=== PATIENT | male | born 1945 | race Caucasian/White ===

== ENCOUNTER 2021-12-25 19:03 | Inpatient (IN) | payer MEDICARE, SELFPAY ==
--- NOTE | ~2021-12-25 | XR_ITS ---
EXAMINATION: XR CHEST CLINICAL INFORMATION: Weakness. COMPARISON: None TECHNIQUE: Frontal view of the chest was obtained. FINDINGS: Normal appearance of the cardiomediastinal silhouette. Mild bibasilar subsegmental atelectasis. No focal airspace opacity, pleural effusion or pneumothorax. No acute osseous abnormalities. XR/XR chest 1V IMPRESSION: Mild bibasilar subsegmental atelectasis. No focal airspace opacity. No pleural effusion or pneumothorax.
--- NOTE | ~2021-12-25 | CT_ITS ---
EXAMINATION: CT HEAD WITHOUT CONTRAST (STROKE PROTOCOL) CLINICAL INFORMATION: Stroke protocol. Left-sided facial drop. COMPARISON: None TECHNIQUE: Contiguous axial imaging was performed from the skull base to vertex without intravenous administration of contrast. This CT examination was performed using dose optimization techniques as appropriate, variously including the following: *Automated exposure control *Adjustment of mA and/or kV according to patient size (this includes techniques or standardized protocols for targeted exams where dose is matched to indication/reason for exam; i.e. extremities or head) *Use of iterative reconstruction technique DLP: 823 mGy-cm FINDINGS: Age indeterminate lacunar infarcts in the right basal ganglia (5:39). Focal hypodensity in the right centrum semiovale (5:28), favoring to represent microangiopathic white matter changes. There is no evidence of acute intracranial hemorrhage or edematous territorial infarction. A few foci of hypoattenuation in the periventricular and deep white matter are consistent with mild microangiopathy. Dumont-white matter differentiation is preserved. Proportional prominence of the ventricles and sulcal spaces. No evidence for obstructive hydrocephalus. No abnormal mass effect or midline shift. No extra-axial fluid collections. No acute soft tissue or osseous abnormalities. Mucus retention cyst in the right maxillary sinus. No air-fluid levels. The mastoids are clear. CT/CT head for stroke IMPRESSION: 1. Age indeterminate lacunar infarctions in the right basal ganglia. Recommend correlation with an MR of the brain. 2. Chronic microangiopathy and generalized cerebral volume loss. This critical result was discussed with Shanika Guillen NP at 12/25/2021 7:25 PM and it was ascertained that the content and urgency of the report was understood at the time of direct communication.
--- NOTE | ~2021-12-25 | CT_ITS ---
EXAMINATION: CTA NECK WITH CONTRAST (STROKE) CTA BRAIN WITH CONTRAST (STROKE) CLINICAL INFORMATION: Left-sided upper extremity and lower extremity weakness and facial droop. COMPARISON: CT scan of the head also obtained 12/25/2021. TECHNIQUE: CTA of the head and neck was performed in the axial plane from the mediastinum to the skull vertex using 70 mL Omnipaque 350 intravenous contrast. A postcontrast CT scan of the head was obtained. The degree of stenosis is based off NASCET criteria.. Additional reformatted multiplanar images including maximum intensity projection MIP images are generated on the CT workstation. This CT examination was performed using dose optimization techniques as appropriate, variously including the following: *Automated exposure control *Adjustment of mA and/or kV according to patient size (this includes techniques or standardized protocols for targeted exams where dose is matched to indication/reason for exam; i.e. extremities or head) *Use of iterative reconstruction technique DLP: 1598 mGy-cm FINDINGS: CT Head: There is no evidence of acute intracranial hemorrhage or territorial infarction. No abnormal mass-effect or midline shift is seen. [place] to white matter differentiation is well preserved. No extra-axial fluid collections are identified. There is no abnormal enhancement. The ventricles and sulci are commensurately prominent consistent with diffuse volume loss. There are areas of low attenuation in the periventricular and subcortical white matter, most consistent with chronic microvascular ischemic changes. There are likely chronic lacunar infarcts versus prominent perivascular spaces in the right basal ganglia. There are no acute osseous findings. There is hyperostosis frontalis interna. There are atherosclerotic calcifications of the cavernous internal carotid arteries bilaterally. The soft tissues are unremarkable. There have been bilateral lens extractions. The mastoid air cells are well-aerated. There is a retention cyst in the inferior left maxillary sinus. There may be a small polyp off the inferior left turbinate bone. CTA Neck: There are atheromatous calcifications of the aortic arch and at the origins of the great vessels of the neck. There is approximately 50% stenosis at the origin of the left subclavian artery. There are atheromatous calcifications at the origins of the left common carotid and brachiocephalic arteries, but the vessels are patent. There are atherosclerotic calcifications at the origin of the right subclavian artery, but the vessel is patent. The common carotid arteries are patent bilaterally with mild atheromatous plaque. There are atheromatous calcifications at the carotid bifurcations bilaterally with approximately 50% stenosis at the left carotid bifurcation and less than 50% stenosis on the right. The cervical internal carotid arteries are tortuous and extend almost to the midline bilaterally. There are mild atheromatous calcifications in the distal cervical internal carotid arteries bilaterally, but the vessels are patent. There are atheromatous calcifications at the origin of the left vertebral artery. There are mild calcifications of the V1 segment of the right vertebral artery. Both vertebral arteries are patent throughout their cervical course. The right vertebral artery is dominant. Nonvascular: There are emphysematous changes in the upper lung jorge bilaterally. The thyroid gland is normal in size. There is no cervical lymphadenopathy. There are multilevel spondylitic and facet changes in the cervical spine. CTA Head: There are atherosclerotic calcifications of the cavernous internal carotid arteries bilaterally. There are also calcifications of the paraclinoid and supraclinoid internal carotid arteries, but the vessels are patent. There is mild stenosis in the mid/distal M1 segment of the right middle cerebral artery, but flow distal to this is maintained and there is good arborization. There is mild ectasia in the distal M1 segment of the left middle cerebral artery without focal stenosis. The bilateral anterior cerebral arteries are patent. There is a 1.8 mm aneurysm of the inferior aspect of the anterior indicating artery to the left midline. In the posterior circulation, the right vertebral artery is dominant. There are calcifications of the bilateral intradural vertebral arteries which are patent. However, there is irregular caliber of the left vertebral artery which ends primarily in the PICA. There is also irregular caliber of the proximal right intradural vertebral artery with significant stenosis. Distal to this the basilar artery is patent but has markedly irregular caliber. There is severe stenosis at the P1/P2 segment of the right posterior cerebral artery. There is a origin of the left posterior cerebral artery. Both posterior cerebral artery P2 and P2 segments have slightly irregular caliber, but are patent. There is good opacification of the right transverse and sigmoid sinuses. The left transverse and sigmoid sinuses are small, but this is likely congenital as the left jugular foramen has a smaller caliber compared to the right. The other venous sinuses opacify normally. CT/CT angio head neck stroke IMPRESSION: CTA head and neck: 1. There are no acute bleeds or territorial infarcts. 2. There is diffuse volume loss and there are chronic microvascular ischemic changes. 3. There are no intracranial masses or areas of abnormal enhancement. 4. There is no cervical lymphadenopathy. There are spondylitic and facet arthropathic changes in the cervical spine. CTA head and neck: 1. There are atherosclerotic calcifications throughout the upper chest and cervical arterial structures without significant stenosis. 2. Intracranially there is irregular caliber of the right middle cerebral artery M1 segment, the bilateral vertebral arteries, the basilar artery and the right posterior cerebral artery. There are no focal stenoses or vascular malformations. 3. 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 4. 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 This critical result was discussed with Shanika Guillen by telephone on 12/25/2021 at 8:34 PM and it was ascertained that the content and urgency of the report was understood at the time of direct communication.
--- NOTE | ~2021-12-25 | MR_ITS ---
EXAMINATION: MR BRAIN WITHOUT CONTRAST CLINICAL INFORMATION: Left-sided facial droop COMPARISON: CTA head and neck 12/25/2021. TECHNIQUE: Multiplanar multisequence MR imaging of the brain was obtained without intravenous contrast. FINDINGS: Reduced diffusion involving the right gibson radiata, posterior lentiform nucleus and posterior limb of the internal capsule, compatible with acute infarct. There is no intracranial hemorrhage on iron-sensitive imaging. No extra-axial collection or mass effect/herniation. Scattered periventricular and deep white matter T2 FLAIR hyperintensities consistent with mild underlying microangiopathy. Chronic lacunar infarcts involving the right centrum semiovale and right lentiform nucleus. No hydrocephalus. Mild generalized cerebral volume loss with commensurate sulcal and ventricular prominence. The major flow voids at the skull base are preserved. The midline structures are normal. The cerebellar tonsils are normally positioned. The craniocervical junction is normal. Marrow signal is within normal limits. The visualized soft tissues are without significant abnormality. No signal abnormality within the paranasal sinuses or within the mastoid air cells. MR/MR head/brain wo con IMPRESSION: 1. Acute infarct involving the right gibson radiata, posterior lentiform nucleus, and posterior limb of the internal capsule. 2. Mild chronic microangiopathy and chronic lacunar infarcts involving the right centrum semiovale and right basal ganglia. -
--- NOTE | 2021-12-25 19:06 | ECG_ITS ---
Test Reason : STROKE Blood Pressure : / mmHG Vent. Rate : 095 BPM Atrial Rate : 095 BPM P-R Int : 148 ms QRS Dur : 092 ms QT Int : 346 ms P-R-T Axes : 056 -20 054 degrees QTc Int : 434 ms Normal sinus rhythm Low voltage QRS Nonspecific T wave abnormality Abnormal ECG No previous ECGs available Referred By: Shanika Guillen Electronically Signed By:KATHRYN GAYLE MD
--- NOTE | 2021-12-25 19:07 | ED_ITS ---
HPI - General Adult General Stated complaint: Stroke Alert <KIKI Meade - Last Filed: 12/25/21 22:10> Time Seen by Provider: 12/25/21 19:06 <KIKI Meade - Last Filed: 12/25/21 22:10> Source: patient <KIKI Meade - Last Filed: 12/25/21 22:10> Mode of arrival: ambulatory <KIKI Meade - Last Filed: 12/25/21 22:10> Limitations: no limitations <KIKI Meade - Last Filed: 12/25/21 22:10> History of Present Illness HPI narrative: 76 year old male medical history significant for hypertension, hyperlipidemia presenting to the emergency department weakness, patient tells me approximately 17:30 he started experiencing left-sided body weakness. He also noted that he has a facial droop and his speech sounds different.. He tells me it feels like his left side is much weaker than his right however is complaining of overall weakness. Patient tells that this is never happened to him in the past. Arrival patient denies chest pain, shortness of breath, nausea, vomiting, headache, vision changes, dizziness abdominal pain. Patient not on blood thinners, no history of stroke, PE or DVT. NIH stroke scale 5. Patient was brought in by EMS in at 18 gauge IV was placed in the left AC. Patient alert oriented x4 on arrival. <KIKI Meade - Last Filed: 12/25/21 22:10> Related Data Home medications: Home Medications Medication Instructions Recorded Confirmed amlodipine 5 mg tablet 1 tab PO DAILY 12/25/21 12/25/21 donepezil 10 mg tablet 1 tab PO BEDTIME 12/25/21 12/25/21 losartan 100 mg tablet 1 tab PO DAILY 12/25/21 12/25/21 melatonin 3 mg tablet 1 tab PO BEDTIME PRN insomnia 12/25/21 12/25/21 mirtazapine 15 mg tablet 1 tab PO BEDTIME 12/25/21 12/25/21 <KIKI Meade - Last Filed: 12/25/21 22:10> Allergies/adverse reactions: Allergies Allergy/AdvReac Type Severity Reaction Status Date / Time No Known Allergies Allergy Unverified 10/26/19 18:03 <KIKI Meade - Last Filed: 12/25/21 22:10> Review of Systems Review of Systems: Constitutional : No Weight loss, No Fever, No Chills, No Fatigue, No Malaise ENT/Mouth : No sore throat, No Rhinorrhea Eyes: No Eye Pain, No Swelling, No Redness Cardiovascular : No Chest Pain, No SOB, No Dyspnea on Exertion, No Orthopnea, No Edema, No Palpitations Respiratory : No Cough, No Sputum, No Wheezing Gastrointestinal : No Nausea, No Vomiting, No Diarrhea, No Constipation, No abdominal Pain, No Hematochezia, No Melena Genitourinary : No Dysuria, No Urinary Frequency, No Hematuria, Musculoskeletal : No joint pain, No Myalgias, No Joint Swelling Skin : No Skin Lesions, No rash Neuro : + Weakness, No Numbness, No Dizziness, No Headache, + slurred speech Psych : No Anxiety/Panic, No Depression All other systems reviewed and are negative <KIKI Meade - Last Filed: 12/25/21 22:10> Yes all other systems are reviewed and are negative <KIKI Meade - Last Filed: 12/25/21 22:10> [facility] Past Medical History Attestation statement: The following information was validated with the patient. <KIKI Meade - Last Filed: 12/25/21 22:10> Source: old records reviewed and nursing notes reviewed <KIKI Meade - Last Filed: 12/25/21 22:10> Social History Social History: Social History Advance Directives: No Advance Directives Information Provided: Yes <KIKI Meade - Last Filed: 12/25/21 22:10> Physical Exam ED Vital Signs: Vital Signs - 24 hr 12/25/21 20:45 12/25/21 20:15 12/25/21 20:30 Pulse Rate 92 90 92 Respiratory Rate 20 20 18 Blood Pressure 173/89 H 190/104 H 173/89 H Pulse Oximetry 96 96 Oxygen Delivery Method Room Air Room Air 12/25/21 20:45 Pulse Rate 90 Respiratory Rate 18 Blood Pressure 177/80 H Pulse Oximetry 96 Oxygen Delivery Method Room Air BMI result Body Mass Index 29.0 vss <KIKI Meade - Last Filed: 12/25/21 22:10> Vital Signs - 24 hr 12/25/21 20:45 12/25/21 20:15 12/25/21 20:30 Pulse Rate 92 90 92 Respiratory Rate 20 20 18 Blood Pressure 173/89 H 190/104 H 173/89 H Pulse Oximetry 96 96 Oxygen Delivery Method Room Air Room Air 12/25/21 20:45 Pulse Rate 90 Respiratory Rate 18 Blood Pressure 177/80 H Pulse Oximetry 96 Oxygen Delivery Method Room Air BMI result Body Mass Index 29.0 <Danial Edwards MD - Last Filed: 12/25/21 22:48> Appearance: Alert.? Oriented X3.? No acute distress.? Head: Normocephalic, atraumatic, no step-offs or deformities. Left-sided facial droop and slurred speech noted. Eyes: Pupils equal, round and reactive to light.? ENT: Pharynx normal.? Neck: Normal inspection.? Neck supple.? CVS: Normal heart rate and rhythm.? Pulses normal.? Respiratory: No respiratory distress.? Breath sounds normal.? Abdomen: Soft and nontender.? Skin: Skin warm and dry.? Normal skin color.? Normal skin turgor.? Extremities: No lower extremity edema.? No calf ttp. Patient noted to have left upper and left lower extremity weakness and drift. Neuro: Oriented X 3.? No motor deficit.? No sensory deficit. CN 2-12 intact. + Romberg test with left-sided drift. Decreased hand electric distribution checker on the left when compared to the right. <KIKI Meade - Last Filed: 12/25/21 22:10> Course Reevaluation(s) Reevaluation #1: Patient's INR 1.1, point of care 103 on point of care testing. Patient's head CT with age indeterminate lacunar infarctions in the right basal ganglia, chronic microangiopathy and generalized cerebral volume loss present. Spoke to Neurology Dr. Ness based off history and physical exam obtained by this [place] TPA will be ordered. I did have my attending evaluate patient who agrees with this plan. No contraindications to tPA administration. <KIKI Meade - Last Filed: 12/25/21 22:10> Time: 19:42 <KIKI Meade - Last Filed: 12/25/21 22:10> Reevaluation #2: I went back to speak to patient about tPA he tells me he thinks he may have fallen 3 times. Based off patients medications list he may have it diagnosis of dementia. He is now reporting to myself and Dr. Edwards that he thinks he fell 3 times today, and other contraindication to tPA. Patient is now saying symptoms started earlier this morning however facial droop started at around 05:30, patient poor historian. Will reach back out to Neurology. <KIKI Meade - Last Filed: 12/25/21 22:10> Time: 19:45 <KIKI Meade - Last Filed: 12/25/21 22:10> Reevaluation #3: After speaking to Neurology again patient will not receive tPA. Due to patient being poor historian, unclear last known well time, history of fall with potential head strike. <KIKI Meade - Last Filed: 12/25/21 22:10> Time: 19:48 <KIKI Meade - Last Filed: 12/25/21 22:10> Additional Reevaluation(s): 1958 CBC with normocytic anemia, no leukocytosis. Chemistry with acute kidney injury, will hydrate as patient did just receive a CTA. Coags with no acute findings. Chest x-ray unremarkable. 2154 Spoke to [facility] Interventional Neurology, nothing to be done about small aneurysm. Will reach out to our neurologist here to ensure that there comfortable keeping this patient in our hospital. [address] Austin who feels comfortable with patient staying in the hospital. Recommends 81 mg of aspirin. At this time patient will be admitted to the hospitalist team for further intervention and treatment. <KIKI Meade - Last Filed: 12/25/21 22:10> Medications Administered Discontinued Medications Generic Name Dose Route Start Last Admin Trade Name Freq PRN Reason Stop Dose Admin Amlodipine Besylate 5 mg 12/25/21 21:14 12/25/21 22:04 Amlodipine Besylate 5 Mg Tablet PO 12/25/21 21:15 Not Given ONCE ONE Protocol Aspirin 81 mg 12/25/21 22:03 12/25/21 22:43 Aspirin Enteric Coated 81 Mg Tablet. PO 12/25/21 22:04 81 mg ONCE ONE Administration Sodium Chloride 1,000 mls @ 999 mls/hr 12/25/21 20:15 12/25/21 21:30 Ns IV 12/25/21 21:15 Infused .Q1H1M SERGEI Infusion Iohexol 100 ml 12/25/21 19:18 12/25/21 19:18 Iohexol 350 Mg/Ml 100 Ml Infus..Btl IV 12/25/21 19:19 70 ml ONCE ONE Administration <KIKI Meade - Last Filed: 12/25/21 22:10> Medications Administered Discontinued Medications Generic Name Dose Route Start Last Admin Trade Name Freq PRN Reason Stop Dose Admin Amlodipine Besylate 5 mg 12/25/21 21:14 12/25/21 22:04 Amlodipine Besylate 5 Mg Tablet PO 12/25/21 21:15 Not Given ONCE ONE Protocol Aspirin 81 mg 12/25/21 22:03 12/25/21 22:43 Aspirin Enteric Coated 81 Mg Tablet. PO 12/25/21 22:04 81 mg ONCE ONE Administration Sodium Chloride 1,000 mls @ 999 mls/hr 12/25/21 20:15 12/25/21 21:30 Ns IV 12/25/21 21:15 Infused .Q1H1M SERGEI Infusion Iohexol 100 ml 12/25/21 19:18 12/25/21 19:18 Iohexol 350 Mg/Ml 100 Ml Infus..Btl IV 12/25/21 19:19 70 ml ONCE ONE Administration <Danial Edwards MD - Last Filed: 12/25/21 22:48> Medical Decision Making [facility] Narrative Medical decision making narrative: 1907 76-year-old male presents with left-sided upper and lower extremity weakness as well as left-sided facial droop symptoms started at 05:30. Patient not on anticoagulants. Patient denies trauma. No history of this in the past. Upon arrival NIH stroke scale 5. On exam there is left upper and lower extremity weakness with drift. No ataxia. Patient noted to have left-sided facial droop with slurred speech. Extraocular movements intact. Patient alert and oriented x4 following commands. Mentating well. Plan at this time to initiate stroke protocol obtain dry head CT, CTA head and neck for stroke. Will obtain PT INR, basic labs, EKG. Will reach out to neurology for input <KIKI Meade - Last Filed: 12/25/21 22:10> Medical Records Medical records reviewed: Yes I reviewed the patient's medical records. <KIKI Meade - Last Filed: 12/25/21 22:10> Lab Data Lab results reviewed: Yes I reviewed the patient's lab results. <KIKI Meade - Last F iled: 12/25/21 22:10> Result diagrams: : 12/25/21 19:40 12/25/21 19:40 <KIKI Meade - Last Filed: 12/25/21 22:10> Labs: Lab Results 12/25/21 12/25/21 12/25/21 Range/Units 19:07 19:07 19:40 WBC 8.0 (4.8-10.8) X10*3/uL RBC 4.33 L (4.60-5.80) X10*6/uL Hgb 12.9 L (14.0-18.0) g/dl Hct 37.4 L (42.0-52.0) % MCV 86.4 (80.0-98.0) fL MCH 29.8 (27.0-33.0) pg MCHC 34.5 (31.0-36.0) g/dl RDW 12.8 (11.0-16.0) % Plt Count 263 (160-400) X10*3/uL MPV 9.1 L (9.4-12.4) fL Immature Gran % (Auto) 0.1 (0.0-0.4) % Neut % (Auto) 62.9 (45-73) % Lymph % (Auto) 21.8 (20-40) % [place] % (Auto) 11.0 (2-11) % Eos % (Auto) 3.3 (0-4) % Baso % (Auto) 0.9 (0-2) % Lymph # (Auto) 1.7 (1.2-4.9) X10*3/uL [place] # (Auto) 0.9 (0.1-1.2) X10*3/uL Eos # (Auto) 0.3 (0.0-0.4) X10*3/uL Baso # (Auto) 0.1 (0.0-0.2) X10*3/uL Abs Immat Gran (auto) 0.01 (0.00-0.03) X10*3/uL Absolute Neuts (auto) 5.0 (2.0-8.3) x10*3/uL Absolute Nucleated RBC 0.000 (0.0-0.012) X10*3/uL Nucleated RBC % (auto) 0.0 (0.0-0.2) /100WBC PT (10.0-13.1) SEC Whole Blood PT 13.1 (11.1-13.5) sec INR (0.9-1.1) Whole Blood INR 1.1 (0.9-1.1) Sodium (135-145) mmol/L Potassium (3.3-5.1) mmol/L Chloride (96-108) mmol/L Carbon Dioxide (22-29) mmol/L Anion Gap (12-20) BUN (9-16) mg/dL Creatinine (0.5-1.4) mg/dL Estim Creat Clear Calc Estimated GFR POC Glucose 103 (60-115) mg/dL Random Glucose (60-115) mg/dL Calcium (8.4-10.2) mg/dL Troponin I High Sens (<3.5-35.0) ng/L B-Natriuretic Peptide (<100) pg/mL Hold Red Top COVID-19 (JONO) (Negative) COVID-19 Clin Com 12/25/21 12/25/21 12/25/21 Range/Units 19:40 19:40 19:40 WBC (4.8-10.8) X10*3/uL RBC (4.60-5.80) X10*6/uL Hgb (14.0-18.0) g/dl Hct (42.0-52.0) % MCV (80.0-98.0) fL MCH (27.0-33.0) pg MCHC (31.0-36.0) g/dl RDW (11.0-16.0) % Plt Count (160-400) X10*3/uL MPV (9.4-12.4) fL Immature Gran % (Auto) (0.0-0.4) % Neut % (Auto) (45-73) % Lymph % (Auto) (20-40) % [place] % (Auto) (2-11) % Eos % (Auto) (0-4) % Baso % (Auto) (0-2) % Lymph # (Auto) (1.2-4.9) X10*3/uL [place] # (Auto) (0.1-1.2) X10*3/uL Eos # (Auto) (0.0-0.4) X10*3/uL Baso # (Auto) (0.0-0.2) X10*3/uL Abs Immat Gran (auto) (0.00-0.03) X10*3/uL Absolute Neuts (auto) (2.0-8.3) x10*3/uL Absolute Nucleated RBC (0.0-0.012) X10*3/uL Nucleated RBC % (auto) (0.0-0.2) /100WBC PT 11.9 (10.0-13.1) SEC Whole Blood PT (11.1-13.5) sec INR 1.0 (0.9-1.1) Whole Blood INR (0.9-1.1) Sodium 140 (135-145) mmol/L Potassium 3.8 (3.3-5.1) mmol/L Chloride 107 (96-108) mmol/L Carbon Dioxide 23 (22-29) mmol/L Anion Gap 14 (12-20) BUN 21 H (9-16) mg/dL Creatinine 1.73 H (0.5-1.4) mg/dL Estim Creat Clear Calc 34.7 Estimated GFR 38 POC Glucose (60-115) mg/dL Random Glucose 101 (60-115) mg/dL Calcium 8.7 (8.4-10.2) mg/dL Troponin I High Sens 48.8 H (<3.5-35.0) ng/L B-Natriuretic Peptide (<100) pg/mL Hold Red Top COVID-19 (JONO) (Negative) COVID-19 Clin Com 12/25/21 12/25/21 12/25/21 Range/Units 19:40 19:40 21:50 WBC (4.8-10.8) X10*3/uL RBC (4.60-5.80) X10*6/uL Hgb (14.0-18.0) g/dl Hct (42.0-52.0) % MCV (80.0-98.0) fL MCH (27.0-33.0) pg MCHC (31.0-36.0) g/dl RDW (11.0-16.0) % Plt Count (160-400) X10*3/uL MPV (9.4-12.4) fL Immature Gran % (Auto) (0.0-0.4) % Neut % (Auto) (45-73) % Lymph % (Auto) (20-40) % [place] % (Auto) (2-11) % Eos % (Auto) (0-4) % Baso % (Auto) (0-2) % Lymph # (Auto) (1.2-4.9) X10*3/uL [place] # (Auto) (0.1-1.2) X10*3/uL Eos # (Auto) (0.0-0.4) X10*3/uL Baso # (Auto) (0.0-0.2) X10*3/uL Abs Immat Gran (auto) (0.00-0.03) X10*3/uL Absolute Neuts (auto) (2.0-8.3) x10*3/uL Absolute Nucleated RBC (0.0-0.012) X10*3/uL Nucleated RBC % (auto) (0.0-0.2) /100WBC PT (10.0-13.1) SEC Whole Blood PT (11.1-13.5) sec INR (0.9-1.1) Whole Blood INR (0.9-1.1) Sodium (135-145) mmol/L Potassium (3.3-5.1) mmol/L Chloride (96-108) mmol/L Carbon Dioxide (22-29) mmol/L Anion Gap (12-20) BUN (9-16) mg/dL Creatinine (0.5-1.4) mg/dL Estim Creat Clear Calc Estimated GFR POC Glucose (60-115) mg/dL Random Glucose (60-115) mg/dL Calcium (8.4-10.2) mg/dL Troponin I High Sens (<3.5-35.0) ng/L B-Natriuretic Peptide 21 (<100) pg/mL Hold Red Top See Note COVID-19 (JONO) Negative (Negative) COVID-19 Clin Com See Note <KIKI Meade - Last Filed: 12/25/21 22:10> Lab Results 12/25/21 12/25/21 12/25/21 Range/Units 19:07 19:07 19:40 WBC 8.0 (4.8-10.8) X10*3/uL RBC 4.33 L (4.60-5.80) X10*6/uL Hgb 12.9 L (14.0-18.0) g/dl Hct 37.4 L (42.0-52.0) % MCV 86.4 (80.0-98.0) fL MCH 29.8 (27.0-33.0) pg MCHC 34.5 (31.0-36.0) g/dl RDW 12.8 (11.0-16.0) % Plt Count 263 (160-400) X10*3/uL MPV 9.1 L (9.4-12.4) fL Immature Gran % (Auto) 0.1 (0.0-0.4) % Neut % (Auto) 62.9 (45-73) % Lymph % (Auto) 21.8 (20-40) % [place] % (Auto) 11.0 (2-11) % Eos % (Auto) 3.3 (0-4) % Baso % (Auto) 0.9 (0-2) % Lymph # (Auto) 1.7 (1.2-4.9) X10*3/uL [place] # (Auto) 0.9 (0.1-1.2) X10*3/uL Eos # (Auto) 0.3 (0.0-0.4) X10*3/uL Baso # (Auto) 0.1 (0.0-0.2) X10*3/uL Abs Immat Gran (auto) 0.01 (0.00-0.03) X10*3/uL Absolute Neuts (auto) 5.0 (2.0-8.3) x10*3/uL Absolute Nucleated RBC 0.000 (0.0-0.012) X10*3/uL Nucleated RBC % (auto) 0.0 (0.0-0.2) /100WBC PT (10.0-13.1) SEC Whole Blood PT 13.1 (11.1-13.5) sec INR (0.9-1.1) Whole Blood INR 1.1 (0.9-1.1) Sodium (135-145) mmol/L Potassium (3.3-5.1) mmol/L Chloride (96-108) mmol/L Carbon Dioxide (22-29) mmol/L Anion Gap (12-20) BUN (9-16) mg/dL Creatinine (0.5-1.4) mg/dL Estim Creat Clear Calc Estimated GFR POC Glucose 103 (60-115) mg/dL Random Glucose (60-115) mg/dL Calcium (8.4-10.2) mg/dL Troponin I High Sens (<3.5-35.0) ng/L B-Natriuretic Peptide (<100) pg/mL Hold Red Top COVID-19 (JONO) (Negative) COVID-19 Clin Com 12/25/21 12/25/21 12/25/21 Range/Units 19:40 19:40 19:40 WBC (4.8-10.8) X10*3/uL RBC (4.60-5.80) X10*6/uL Hgb (14.0-18.0) g/dl Hct (42.0-52.0) % MCV (80.0-98.0) fL MCH (27.0-33.0) pg MCHC (31.0-36.0) g/dl RDW (11.0-16.0) % Plt Count (160-400) X10*3/uL MPV (9.4-12.4) fL Immature Gran % (Auto) (0.0-0.4) % Neut % (Auto) (45-73) % Lymph % (Auto) (20-40) % [place] % (Auto) (2-11) % Eos % (Auto) (0-4) % Baso % (Auto) (0-2) % Lymph # (Auto) (1.2-4.9) X10*3/uL [place] # (Auto) (0.1-1.2) X10*3/uL Eos # (Auto) (0.0-0.4) X10*3/uL Baso # (Auto) (0.0-0.2) X10*3/uL Abs Immat Gran (auto) (0.00-0.03) X10*3/uL Absolute Neuts (auto) (2.0-8.3) x10*3/uL Absolute Nucleated RBC (0.0-0.012) X10*3/uL Nucleated RBC % (auto) (0.0-0.2) /100WBC PT 11.9 (10.0-13.1) SEC Whole Blood PT (11.1-13.5) sec INR 1.0 (0.9-1.1) Whole Blood INR (0.9-1.1) Sodium 140 (135-145) mmol/L Potassium 3.8 (3.3-5.1) mmol/L Chloride 107 (96-108) mmol/L Carbon Dioxide 23 (22-29) mmol/L Anion Gap 14 (12-20) BUN 21 H (9-16) mg/dL Creatinine 1.73 H (0.5-1.4) mg/dL Estim Creat Clear Calc 34.7 Estimated GFR 38 POC Glucose (60-115) mg/dL Random Glucose 101 (60-115) mg/dL Calcium 8.7 (8.4-10.2) mg/dL Troponin I High Sens 48.8 H (<3.5-35.0) ng/L B-Natriuretic Peptide (<100) pg/mL Hold Red Top COVID-19 (JONO) (Negative) COVID-19 Clin Com 12/25/21 12/25/21 12/25/21 Range/Units 19:40 19:40 21:50 WBC (4.8-10.8) X10*3/uL RBC (4.60-5.80) X10*6/uL Hgb (14.0-18.0) g/dl Hct (42.0-52.0) % MCV (80.0-98.0) fL MCH (27.0-33.0) pg MCHC (31.0-36.0) g/dl RDW (11.0-16.0) % Plt Count (160-400) X10*3/uL MPV (9.4-12.4) fL Immature Gran % (Auto) (0.0-0.4) % Neut % (Auto) (45-73) % Lymph % (Auto) (20-40) % [place] % (Auto) (2-11) % Eos % (Auto) (0-4) % Baso % (Auto) (0-2) % Lymph # (Auto) (1.2-4.9) X10*3/uL [place] # (Auto) (0.1-1.2) X10*3/uL Eos # (Auto) (0.0-0.4) X10*3/uL Baso # (Auto) (0.0-0.2) X10*3/uL Abs Immat Gran (auto) (0.00-0.03) X10*3/uL Absolute Neuts (auto) (2.0-8.3) x10*3/uL Absolute Nucleated RBC (0.0-0.012) X10*3/uL Nucleated RBC % (auto) (0.0-0.2) /100WBC PT (10.0-13.1) SEC Whole Blood PT (11.1-13.5) sec INR (0.9-1.1) Whole Blood INR (0.9-1.1) Sodium (135-145) mmol/L Potassium (3.3-5.1) mmol/L Chloride (96-108) mmol/L Carbon Dioxide (22-29) mmol/L Anion Gap (12-20) BUN (9-16) mg/dL Creatinine (0.5-1.4) mg/dL Estim Creat Clear Calc Estimated GFR POC Glucose (60-115) mg/dL Random Glucose (60-115) mg/dL Calcium (8.4-10.2) mg/dL Troponin I High Sens (<3.5-35.0) ng/L B-Natriuretic Peptide 21 (<100) pg/mL Hold Red Top See Note COVID-19 (JONO) Negative (Negative) COVID-19 Clin Com See Note <Danial Edwards MD - Last Filed: 12/25/21 22:48> Attending Attestation The patient was seen and evaluated along with the physician assistant store director. Patient is demonstrating signs and symptoms of an acute CVA. Agree with the plan of CT/CTA, neurology consult. TPA was considered, although with patient's history of dementia and with the non clarity of time of onset, it was not recommended by Neurology. Coincidental finding of a small aneurysm on CTA. Discussion was undertaken with Neurosurgery from [facility]. The patient will be admitted for further evaluation. <Danial Edwards MD - Last Filed: 12/25/21 22:48> Critical Care Time Critical Care Time Critical Care Time: Yes <KIKI Meade - Last Filed: 12/25/21 22:10> Total Critical Care Time: 60 <KIKI Meade - Last Filed: 12/25/21 22:10> Attestation: I attest to this time spent taking care of the patient, obtaining history, physical, reviewing labs, imaging, speaking to my attending, speaking to specialist. <KIKI Meade - Last Filed: 12/25/21 22:10> Discharge Plan Discharge Clinical Impression: Lacunar infarction, Facial droop, Acute left-sided muscle weakness <KIKI Meade - Last Filed: 12/25/21 22:10> Patient Disposition: Admitted As Inpatient <KIKI Meade - Last Filed: 12/25/21 22:10>
[2021-12-25 19:08] VITALS: BP 170/90; PULSE 120; O2SAT 98
[2021-12-25 19:12] LABS: Glucose, Whole Blood 103 mg/dL (60-115)
[2021-12-25 19:14] LABS: Prothrombin Time Whole Bld POC 13.1 sec (11.1-13.5); ~PT, ~INR - Anti Coag Clinic 1.1 (0.9-1.1)
[2021-12-25] MEDS: iohexoL 350 MG/ML 100 ML INFUS..BTL IV (19:18)
[2021-12-25 19:20] VITALS: BP 190/104; PULSE 80; RESP 20; TEMP 36.4; O2SAT 96; BMI 29.0
[2021-12-25 19:42] VITALS: BMI 29.0; BMI 29.1
[2021-12-25 19:46] LABS: MANUAL DIFF FLAG NO
[2021-12-25 19:47] LABS: Basophils Absolute Auto 0.1 X10*3/uL (0.0-0.2); Basophils Percent Auto 0.9 % (0-2); Eosinophils Absolute Auto 0.3 X10*3/uL (0.0-0.4); Eosinophils Percent Auto 3.3 % (0-4); Hematocrit 37.4 % (42.0-52.0); Hemoglobin 12.9 g/dl (14.0-18.0); Imm Gran Abs Auto 0.01 X10*3/uL (0.00-0.03); Imm Gran Pct Auto 0.1 % (0.0-0.4); Lymphocytes Absolute Auto 1.7 X10*3/uL (1.2-4.9); Lymphocytes Percent Auto 21.8 % (20-40); Mean Corpuscular HGB Conc 34.5 g/dl (31.0-36.0); Mean Corpuscular Hemoglobin 29.8 pg (27.0-33.0); Mean Corpuscular Volume 86.4 fL (80.0-98.0); Mean Platelet Volume 9.1 fL (9.4-12.4); Monocytes Absolute Auto 0.9 X10*3/uL (0.1-1.2); Neutrophils Percent Auto 62.9 % (45-73); Platelet Count 263 X10*3/uL (160-400); Red Blood Count 4.33 X10*6/uL (4.60-5.80); Red Cell Distribution Width 12.8 % (11.0-16.0)
[2021-12-25 19:52] LABS: Prothrombin Time 11.9 SEC (10.0-13.1)
[2021-12-25 20:00] LABS: Anion Gap 14 (12-20); Blood Urea Nitrogen 21 mg/dL (9-16); Calcium 8.7 mg/dL (8.4-10.2); Carbon Dioxide 23 mmol/L (22-29); Chloride 107 mmol/L (96-108); Creatinine Clr Calc Pharmacy 34.7; Estimated Glomerular Filt Rate 38; Glucose Random 101 mg/dL (60-115); Potassium 3.8 mmol/L (3.3-5.1); Sodium 140 mmol/L (135-145)
[2021-12-25 20:08] LABS: Troponin-I High Sensitivity 48.8 ng/L (<3.5-35.0)
[2021-12-25] MEDS: 0.9 % Sodium Chloride 1,000 ML 999 ML IV (20:11)
[2021-12-25 20:15] VITALS: BP 190/104; PULSE 90; RESP 20; O2SAT 96
[2021-12-25 20:19] LABS: Stroke Lab Use COMPLETE
[2021-12-25 20:30] VITALS: BP 173/89; PULSE 92; RESP 18; O2SAT 96
[2021-12-25 20:42] LABS: B Type Natriuretic Peptide 21 pg/mL (<100)
[2021-12-25 20:45] VITALS: BP 173/89; BP 177/80; PULSE 90; PULSE 92; RESP 18; RESP 20; O2SAT 96
--- NOTE | 2021-12-25 21:21 | PHA.MEDREC ---
Pharmacy Consult ? Medication Reconciliation Pharmacy has completed the medication reconciliation.
[2021-12-25 22:08] LABS: COVID-19 Test Negative (Negative)
[2021-12-25] MEDS: Aspirin Enteric Coated 81 MG TABLET.DR PO (22:43)
--- NOTE | 2021-12-25 23:03 | PM.IMHP ---
History of Present Illness Date of Service: 12/25/21 Chief Complaint: Speech deficit This is a 76-year-old male with pertinent history of essential hypertension, insomnia who presents to the emergency department for evaluation of left-sided weakness, facial droop and speech deficit. Initially patient stated that he 1st noticed his deficits at 17:30. He was considered for tPA but later stated that his symptoms started earlier this morning. Neurology was contacted and he was deemed to be not a candidate for tPA. Upon my evaluation, patient states around 06:00 he noticed facial droop, change in his speech. He also had a fall due to weakness in lower extremities. Patient states he has noticed that his left upper and lower extremity have been weak since morning. No dizziness, lightheadedness or loss of consciousness prior to the fall. No similar symptoms in the past. Patient denies fever, chills, jerking movement of extremities, tongue bite, urinary bowel incontinence, chest discomfort, palpitations, shortness of breath, abdominal pain, changes in urinary or bowel habits Review of Systems Constitutional: Constitutional: Reports no additional constitutional complaints and Reports weakness Cardiovascular: Cardiovascular: Reports no additional cardiovascular complaints Respiratory: Respiratory: Reports no additional respiratory complaints Gastrointestinal: Gastrointestinal: Reports no additional gastrointestinal complaints Genitourinary: Genitourinary: Reports no additional male genitourinary complaints Neurologic: Reports Abnormal speech present and Reports weakness [facility] Medical History (Updated 12/25/21 @ 23:09 by Lizzy Mcfadden MD) Hypertension Insomnia Social History Advance Directives: No Advance Directives Information Provided: Yes Meds Allergies Allergy/AdvReac Type Severity Reaction Status Date / Time No Known Allergies Allergy Unverified 10/26/19 18:03 Active Medications: Current Medications Acetaminophen (Acetaminophen 325 Mg Tablet) 650 mg PO Q6H PRN PRN Reason: Pain, Mild (Pain Scale 1-3) Enoxaparin Sodium (Enoxaparin Sodium 40 Mg/0.4 Ml Syringe) 40 mg SUBCUT Q24H SERGEI Melatonin (Melatonin 3 Mg Tablet) 6 mg PO BEDTIME PRN PRN Reason: Insomnia Ondansetron HCl (Ondansetron Hcl 4 Mg/2 Ml Vial) 4 mg IVPUSH Q8H PRN PRN Reason: Nausea and Vomiting Pharmacy Consult (Consult Rx Perform Med Rec) 1 each MISCELLANE ONCE PRN PRN Reason: Consult order Sodium Chloride (0.9 % Sodium Chloride Flush 3 Ml Syringe) [facility]ations Medication Instructions Recorded Confirmed Last Taken Type amlodipine 5 mg tablet 1 tab PO DAILY 12/25/21 12/25/21 12/25/21 History donepezil 10 mg tablet 1 tab PO BEDTIME 12/25/21 12/25/21 12/24/21 History losartan 100 mg tablet 1 tab PO DAILY 12/25/21 12/25/21 12/25/21 History melatonin 3 mg tablet 1 tab PO BEDTIME PRN insomnia 12/25/21 12/25/21 Unknown History mirtazapine 15 mg tablet 1 tab PO BEDTIME 12/25/21 12/25/21 12/24/21 History Physical Exam Vital Signs and Narrative: Vital Signs: Last Vital Signs Pulse 90 12/25/21 20:45 Resp 18 12/25/21 20:45 BP 177/80 H 12/25/21 20:45 Pulse Ox 96 12/25/21 20:45 O2 Del Method 12/25/21 20:45 BMI result Body Mass Index 29.0 Middle-aged male lying in bed in no distress Neck supple, no JVD Regular rate and rhythm, S1-S2 heard Regular breath sounds bilaterally, no wheezing or crackles appreciated Abdomen soft nontender, no guarding, no rigidity Patient is awake, alert and oriented to self, place, time and person ; facial droop noted, left upper and lower extremity with strength 3/5, right lower and upper extremity strength 5/5 Psych: Normal mood No pedal edema Neuro: Speech: Abnormal speech present Results Labs CBC and Chem 7: 12/25/21 19:40 12/25/21 19:40 Labs: Laboratory Results - last 24 hr 12/25/21 12/25/21 12/25/21 19:07 19:07 19:40 MCV 86.4 MCH 29.8 MCHC 34.5 RDW 12.8 Plt Count 263 MPV 9.1 L Immature Gran % (Auto) 0.1 Neut % (Auto) 62.9 Lymph % (Auto) 21.8 [place] % (Auto) 11.0 Eos % (Auto) 3.3 Baso % (Auto) 0.9 Lymph # (Auto) 1.7 [place] # (Auto) 0.9 Eos # (Auto) 0.3 Baso # (Auto) 0.1 Abs Immat Gran (auto) 0.01 Absolute Neuts (auto) 5.0 Absolute Nucleated RBC 0.000 Nucleated RBC % (auto) 0.0 PT Whole Blood PT 13.1 INR Whole Blood INR 1.1 Anion Gap Estim Creat Clear Calc Estimated GFR POC Glucose 103 Random Glucose Calcium Troponin I High Sens B-Natriuretic Peptide Hold Red Top COVID-19 (JONO) COVID-19 Clin Com 12/25/21 12/25/21 12/25/21 19:40 19:40 19:40 MCV MCH MCHC RDW Plt Count MPV Immature Gran % (Auto) Neut % (Auto) Lymph % (Auto) [place] % (Auto) Eos % (Auto) Baso % (Auto) Lymph # (Auto) [place] # (Auto) Eos # (Auto) Baso # (Auto) Abs Immat Gran (auto) Absolute Neuts (auto) Absolute Nucleated RBC Nucleated RBC % (auto) PT 11.9 Whole Blood PT INR 1.0 Whole Blood INR Anion Gap 14 Estim Creat Clear Calc 34.7 Estimated GFR 38 POC Glucose Random Glucose 101 Calcium 8.7 Troponin I High Sens 48.8 H B-Natriuretic Peptide Hold Red Top COVID-19 (JONO) COVID-19 [employer] Com 12/25/21 12/25/21 12/25/21 19:40 19:40 21:50 MCV MCH MCHC RDW Plt Count MPV Immature Gran % (Auto) Neut % (Auto) Lymph % (Auto) [place] % (Auto) Eos % (Auto) Baso % (Auto) Lymph # (Auto) [place] # (Auto) Eos # (Auto) Baso # (Auto) Abs Immat Gran (auto) Absolute Neuts (auto) Absolute Nucleated RBC Nucleated RBC % (auto) PT Whole Blood PT INR Whole Blood INR Anion Gap Estim Creat Clear Calc Estimated GFR POC Glucose Random Glucose Calcium Troponin I High Sens B-Natriuretic Peptide 21 Hold Red Top See Note COVID-19 (JONO) Negative COVID-19 Clin Com See Note Imaging Radiologist's Impressions: Impressions Head CT 12/25/21 19:11 IMPRESSION: 1. Age indeterminate lacunar infarctions in the right basal ganglia. Recommend correlation with an MR of the brain. 2. Chronic microangiopathy and generalized cerebral volume loss. This critical result was discussed with Shanika Guillen NP at 12/25/2021 7:25 PM and it was ascertained that the content and urgency of the report was understood at the time of direct communication. Head/Neck CTA 12/25/21 19:19 IMPRESSION: CTA head and neck: 1. There are no acute bleeds or territorial infarcts. 2. There is diffuse volume loss and there are chronic microvascular ischemic changes. 3. There are no intracranial masses or areas of abnormal enhancement. 4. There is no cervical lymphadenopathy. There are spondylitic and facet arthropathic changes in the cervical spine. CTA head and neck: 1. There are atherosclerotic calcifications throughout the upper chest and cervical arterial structures without significant stenosis. 2. Intracranially there is irregular caliber of the right middle cerebral artery M1 segment, the bilateral vertebral arteries, the basilar artery and the right posterior cerebral artery. There are no focal stenoses or vascular malformations. 3. 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 4. 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 This critical result was discussed with Shanika Guillen by telephone on 12/25/2021 at 8:34 PM and it was ascertained that the content and urgency of the report was understood at the time of direct communication. Chest X-Ray 12/25/21 19:28 IMPRESSION: Mild bibasilar subsegmental atelectasis. No focal airspace opacity. No pleural effusion or pneumothorax. Assessment and Plan (1) Lacunar infarction: Status: Acute (2) Facial droop: Status: Acute (3) Left-sided weakness: Status: Acute (4) Other speech & language deficit: Status: Acute (5) Insomnia: Status: Acute (6) Hypertension: Status: Acute Plan This is a 76-year-old male with pertinent history of essential hypertension, insomnia who presents to the emergency department for evaluation of left-sided weakness, facial droop and speech deficit. #. Acute CVA -Will admit patient with director of cardiac cath lab. Obtaining MRI of the brain to further delineate anatomy. Neurology consulted from the ER, appreciate assistance. Initiating dual antiplatelet therapy and high-intensity statin. Obtaining A1c, lipid panel and echocardiogram to complete workup. Physical therapy to evaluate and treat. NPO until patient passes speech swallow. #. Elevated creatinine - Unclear baseline. COOPER versus CKD. Patient received IV crystalloids in the ER. Monitor urine output and creatinine with fluid resuscitation #. Elevated troponin -likely type2 due to increased demand. No chest pain and no concern for ACS at the time of admission. #. 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 #. HTN -hold p.o. antihypertensives to allow for permissive hypertension. #. Insomnia -continue home meds once no longer npo #. Dementia, unspeified -on donepezil DVT prophylaxis: Lovenox 40mg daily Npo until pt passes swallow screen Full code Admit as inpatient and will require two night minimum hospital stay for stroke workup. Physical therapy eval pending for safe disposition. Quality Stroke Does the patient have a stroke diagnosis?: Yes Reason for No Anti-thrombotic by Day Two: N/A - Med Ordered VTE Prior VTE?: No VTE Risk Level:: Medical - moderate - high VTE Device Contraindication: Treatment Not Indicated VTE Drug Contraindication: N/A - Med Ordered
[2021-12-25 23:29] VITALS: BP 158/85; PULSE 78; RESP 18; TEMP 36.7; O2SAT 94
--- NOTE | 2021-12-25 23:29 | PC.NURSE ---
Patient alert and oriented x 2-3. Forgetful at baseline. Patient has a [place] cath draining clear yellow urine. Patient denies any pain. tele: sinus rythym 80-90's. Patient has 2 iv's left IV was placed by EMS 18g left Antecubital. Right antecubital 20g was placed by me. Will continue to follow plan of care.
--- NOTE | 2021-12-25 23:31 | PC.NURSE ---
pt is very weak on left side will benefit using a aden walker
[2021-12-26] MEDS: Atorvastatin Calcium 40 MG TABLET PO ×2 (00:29→21:49)
[2021-12-26] MEDS: Enoxaparin Sodium 40 MG/0.4 ML SYRINGE SUBCUT ×2 (00:29→21:49)
[2021-12-26] MEDS: 0.9 % Sodium Chloride Flush 3 ML SYRINGE IVFLUSH ×3 (00:30→16:18)
[2021-12-26 04:00] VITALS: BP 168/82; PULSE 72; RESP 14; O2SAT 98
[2021-12-26 06:46] LABS: MANUAL DIFF FLAG NO
[2021-12-26 06:51] LABS: Basophils Absolute Auto 0.1 X10*3/uL (0.0-0.2); Basophils Percent Auto 1.1 % (0-2); Eosinophils Absolute Auto 0.3 X10*3/uL (0.0-0.4); Eosinophils Percent Auto 3.9 % (0-4); Hematocrit 39.2 % (42.0-52.0); Hemoglobin 13.4 g/dl (14.0-18.0); Imm Gran Abs Auto 0.01 X10*3/uL (0.00-0.03); Imm Gran Pct Auto 0.1 % (0.0-0.4); Lymphocytes Absolute Auto 2.5 X10*3/uL (1.2-4.9); Lymphocytes Percent Auto 31.7 % (20-40); Mean Corpuscular HGB Conc 34.2 g/dl (31.0-36.0); Mean Corpuscular Hemoglobin 29.8 pg (27.0-33.0); Mean Corpuscular Volume 87.1 fL (80.0-98.0); Mean Platelet Volume 9.7 fL (9.4-12.4); Monocytes Absolute Auto 0.9 X10*3/uL (0.1-1.2); Monocytes Percent Auto 11.3 % (2-11); Neutrophils Absolute Auto 4.1 x10*3/uL (2.0-8.3); Neutrophils Percent Auto 51.9 % (45-73); Platelet Count 266 X10*3/uL (160-400); Red Cell Distribution Width 12.9 % (11.0-16.0); White Blood Count 7.9 X10*3/uL (4.8-10.8)
--- NOTE | 2021-12-26 07:00 | CA_ITS ---
Transthoracic Echocardiogram Patient (Last, First, Middle): Dexter Weldon L Gender: Male Date of : 1945 Age: 76 Procedure Date: 12/26/2021 Procedure Type: Transthoracic Echocardiogram Location[place] [facility] [place] Height: 165.1 cm Weight: 78.93 kg BSA: 1.86 m2 Heart Rate: bpm BP: 168 / 82 mmHg [employer] Wheel Operator: Referring MD: Lizzy Mcfadden MD Symptoms: CVA Study Quality: Technically Difficult ECG Rhythm: Sinus Conclusions: - 1. Normal LV systolic function with impaired relaxation filling pattern next 2. Mild fibrocalcific aortic valve changes noted and mild mitral and calcification noted with normal cardiac valvular Dopplers 3. Normal RV systolic pressure 4. No gross pericardial effusion Findings Procedure Information Contrast agent, definity, is being given per protocol without apparent complications. Left Ventricle Normal left ventricular size, thickness, and systolic function. The visually estimated ejection fraction is between 60-65%. Regional wall motion abnormalities can not be excluded due to suboptimal endocardial definition. Spectral Doppler is indicative of an impaired relaxation filling pattern. E/E prime ratio is between 8 and 15 consistent with indeterminate filling pressures. Right Ventricle The right ventricle was not well visualized. Atria The left atrium is normal in size. Interatrial shunt cannot be excluded. The right atrium was not well visualized. Aortic Valve There is mild calcification of the aortic valve. There is no aortic valve stenosis. There is no aortic valve regurgitation. Mitral Valve There is mild anterior and posterior mitral leaflet thickening. There is mild mitral annular calcification. There is trace mitral valve regurgitation. There is no mitral valve stenosis. Pulmonic Valve The pulmonic valve was not well visualized. Tricuspid Valve Likely normal tricuspid valve structure and function. There is trace tricuspid valve regurgitation. The right ventricular systolic pressure is normal. The right ventricular systolic pressure is 19 mmHg. Normal right atrial pressure. There is no evidence of pulmonary hypertension. Great Vessels The aorta was not well visualized. The pulmonary artery was not well visualized. Venous The inferior vena cava is normal in size and collapses greater than 50% with inspiration. Pericardium/Pleural There is no evidence of pericardial effusion. Prior Study Comparison No prior study available for comparison. Measurements 2D Linear Measurements IVSd: 0.83 0.6-0.9/0.6-1.0 cm LVIDd: 4.74 3.9-5.3/4.2-5.9 cm LVIDd Index: 2.55 2.4-3.2/2.2-3.1 cm/m2 LVIDs: 3.34 2.0-3.6 cm LVPWd: 1.10 0.7-1.1 cm Ao Root: 3.70 2.1-3.5 cm LA Diam: 3.10 2.7-3.8/3.0-4.0 cm LAIDs Index: 1.67 1.5-2.3 cm/m2 LV Mass: 290.51 67-162/88-224 g LV Mass Index: 156.19 43-95/49-115 g/m2 LVOT Diam: 2.00 3.0+(-)1.3 cm Mitral Valve MV Pk E: 0.61 MV PK A: 1.07 MV Decel Time: 195.00 E/A: 0.60 E'Lateral: 5.22 E'Medial: 5.77 E/E' Med: 10.60 E/E' Lat: 11.70 PHT: 57.00 MVA PHT: 3.86 Decel [place]: 3.14 Aortic Valve AoV Pk Julio: 1.14 AoV Mn Julio: 0.80 AoV VTI: 0.24 AoV Pk Grad: 5.00 Aov Mn Grad: 3.00 ANA Cont.VTI: 2.53 LVOT LVOT Pk Julio: 0.83 LVOT Mn Julio: 0.56 LVOT VTI: 0.19 LVOT Pk Grad: 3.00 LVOT Mn Grad: 1.00 LVOT Diam: 2.00 LVOT Area: 3.14 Diastolic Function MV Pk E: 0.61 MV Pk A: 1.07 E/A: 0.60 E'Medial: 5.77 E/E' Med: 10.60 E' Laterial: 5.22 E/E' Lat: 11.70 Right Ventricle TAPSE (mm): 20.00 TVS' Julio: 18.00 Tricuspid Valve TR Pk Julio: 1.98 TR Pk Grad: 16.00 RA Press: 3.00 RVSP: 19.00 Great Vessels Aorta Ao Root-2D: 3.70 2.0-3.7 cm Ao Asc: 3.50 2.1-3.4 cm Pulmonary Valve PV Pk Julio: 0.76 Peak PV Grad: 2.00 Updated in Other Vendor System with Status of Final Richard Martinez MD electronically signed on 12/26/2021 2:40:38 PM with status of Final
[2021-12-26 07:40] VITALS: BP 168/82; PULSE 72; O2SAT 98
[2021-12-26] MEDS: Clopidogrel Bisulfate 75 MG TABLET PO (07:43)
[2021-12-26] MEDS: Aspirin 81 MG TAB.CHEW PO (07:43)
[2021-12-26 08:00] VITALS: BP 167/83; PULSE 79; RESP 20; TEMP 36.1; O2SAT 97
[2021-12-26 08:09] LABS: Anion Gap 15 (12-20); Blood Urea Nitrogen 15 mg/dL (9-16); Calcium 8.8 mg/dL (8.4-10.2); Carbon Dioxide 22 mmol/L (22-29); Chloride 108 mmol/L (96-108); Cholesterol 216 mg/dL; Creatinine Clr Calc Pharmacy 43.5; Estimated Glomerular Filt Rate 50; Glucose Random 99 mg/dL (60-115); HDL Cholesterol 50 mg/dL; LDL Cholesterol Calculated 148 mg/dl; Potassium 3.7 mmol/L (3.3-5.1); Sodium 141 mmol/L (135-145); Triglycerides 92 mg/dL
[2021-12-26 08:18] LABS: Estimated Average Glucose 128 mg/dL; Hemoglobin A1C 222.3147 umol/L; Hemoglobin A1c % 6.1 %
--- NOTE | 2021-12-26 09:25 | MHC.CM.PN ---
CM first attempted to meet with Patient at bedside but noticed s/s of confusion; CM spoke with Patient's Daughter/HCP/Gus @ [phone] and addressed IMM with her (original to be mailed certified letter to her and a copy has been placed on the chart). Patient lives alone in a house and was receiving MOWs. PT is recommending Acute Rehab and referrals have been made with Gus's permission. CM has initiated and will follow for dc planning. Patient's PCP is Dr. Karri Merrill and he is not Covid kristine'd.Patient uses a scooter for distances.
--- NOTE | 2021-12-26 11:10 | MHC.STROKE ---
Addendum entered by Leeanne Feliciano RN 12/26/21 14:20: I PROVIDED ADDITIONAL STROKE EDUCATION TO THE FAMILY AFTER THE MRI, I GAVE THEM A SCREENSHOT OF THE MRI AND DESCRIBED THE LOCATION AND CORRELATING SYMPTOMS. I ALSO INCLUDED THE SISTER FROM [place]. THEY HAD SEVERAL QUESTIONS AND I WAS ABLE TO ANSWER THEM. I DID RECOMMEND AND REINFORCE ACUTE REHAB. Addendum entered by Leeanne Feliciano RN 12/26/21 12:46: I MET WITH THE PATIENT, AND 2 DAUGHTERS. I PROVIDED STROKE EDUCATION BY REVIEWING THE BOOKLET AND POWER POINT SLIDES. THE MRI WILL NOT BE DONE UNTIL THIS AFTERNOON. I REVIEWED THE PLAN OF CARE AND ANSWERED ALL OF THEIR QUESTIONS. THE SEES DR. ALVARADO FOR HER [facility]. HE WILL BE ROUNDING SHORTLY. ALL STROKE MEASURES MET, SWALLOW EVALUATION BY SPEECH PENDING. Original Note: 12/25/21 1858 EMS PRE-NOTIFIED STROKE ALERT , LEFT SIDED WEAKNESS ?ONSET 1730. ARRIVED AT 1903. EXAMINED BY PROVDIER, STROKE PROTOCOL ACTIVATED, NIHSS = 5, DIRECT TO CT AND CTA, NO BLEED, NO LVO, 1.8mm ANEURYSM NOTED. SEE REPORT. DR LANG NOTIFIED FOR POSSIBLE TPA, TIMELINE CHANGED AND LKW 0530, FALLS X3, EXCLUDED FROM TPA BASED ON THIS ADDITIONAL INFORMATION. VERIFIED PASSED SWALLOW SCREEN AT 2240 PRIOR TO PO. MRI PENDING, I WILL CONTINUE TO FOLLOW.
--- NOTE | 2021-12-26 11:13 | MHC.CLN ---
RE: CONSULT CONSULT STATED SPEECH EVAL-STROKE PT NOTIFIED CLIENT SUPPORT REPRESENTATIVE DEPARTMENT OF CONSULT VIA [employer]
[2021-12-26 11:42] VITALS: BP 154/86; PULSE 80; RESP 20; TEMP 36.8; O2SAT 97
--- NOTE | 2021-12-26 12:13 | P.CNNE_ITS ---
History of Present Illness Data of Consult Service Date: 12/26/21 Primary Care Provider: Karri Merrill III, MD [facility] Reason for consult: stroke This is a 76-year-old male with history of essential hypertension, insomnia who presented to the ER for evaluation of left-sided weakness, facial droop and speech deficit.?His symptoms started earlier this morning and he was deemed to be not a candidate for tPA outside the treatment time window.?He also had a fall due to weakness in lower extremities.? Patient states he has noticed that his left upper and lower extremity have been weak since morning.? No dizziness, li ghtheadedness or loss of consciousness prior to the fall.? No similar symptoms in the past. No chest discomfort, palpitations, shortness of breath. CT shows microvacsular changes, atrophy and lacunar infarcts and no acute findings. CTA of head and neck without occlusive disease. Review of Systems Review of Systems: Constitutional : No Weight loss, No Fever, No Chills, No Fatigue, No Malaise ENT/Mouth : No sore throat, No Rhinorrhea Eyes: No Eye Pain, No Swelling, No Redness Cardiovascular : No Chest Pain, No SOB, No Dyspnea on Exertion, No Orthopnea, No Edema, No Palpitations Respiratory : No Cough, No Sputum, No Wheezing Gastrointestinal : No Nausea, No Vomiting, No Diarrhea, No Constipation, No abdominal Pain, No Hematochezia, No Melena Genitourinary : No Dysuria, No Urinary Frequency, No Hematuria, Musculoskeletal : No joint pain, No Myalgias, No Joint Swelling Skin : No Skin Lesions, No rash Neuro : + Weakness, No Numbness, No Dizziness, No Headache, + slurred speech Psych : No Anxiety/Panic, No Depression All other systems reviewed and are negative Yes all other systems are reviewed and are negative Constitutional: Constitutional: Reports no additional constitutional complaints and Reports weakness Cardiovascular: Cardiovascular: Reports no additional cardiovascular complaints Respiratory: Respiratory: Reports no additional respiratory complaints Gastrointestinal: Gastrointestinal: Reports no additional gastrointestinal complaints Genitourinary: Genitourinary: Reports no additional male genitourinary complaints Neurologic: Reports Abnormal speech present and Reports weakness PMFSH Past Medical History Medical History Hypertension Insomnia Social History Social History Household Members: Spouse Housing: House Do you presently have visiting nurse or other home services: No Patient Tobacco Use Status: Never used Tobacco service: Yes Current occupational status: retired Meds Allergies Allergy/AdvReac Type Severity Reaction Status Date / Time No Known Allergies Allergy Unverified 10/26/19 18:03 Active Medications: Current Medications Acetaminophen (Acetaminophen 325 Mg Tablet) 650 mg PO Q6H PRN PRN Reason: Pain, Mild (Pain Scale 1-3) Aspirin (Aspirin 81 Mg Tab.Chew) 81 mg PO DAILY [facility] Last Admin: 12/26/21 07:43 Dose: 81 mg Atorvastatin Calcium (Atorvastatin Calcium 40 Mg Tablet) 40 mg PO BEDTIME [facility] Last Admin: 12/26/21 00:29 Dose: 40 mg Clopidogrel Bisulfate (Clopidogrel Bisulfate 75 Mg Tablet) 75 mg PO DAILY [facility] Last Admin: 12/26/21 07:43 Dose: 75 mg Donepezil HCl (Donepezil Hcl 10 Mg Tablet) 10 mg PO BEDTIME [facility] Enoxaparin Sodium (Enoxaparin Sodium 40 Mg/0.4 Ml Syringe) 40 mg SUBCUT BEDTIME [facility] Last Admin: 12/26/21 00:29 Dose: 40 mg Melatonin (Melatonin 3 Mg Tablet) 6 mg PO BEDTIME PRN PRN Reason: Insomnia Melatonin (Melatonin 3 Mg Tablet) 3 mg PO BEDTIME PRN PRN Reason: insomnia Mirtazapine (Mirtazapine 15 Mg Tablet) 15 mg PO BEDTIME [facility] Ondansetron HCl (Ondansetron Hcl 4 Mg/2 Ml Vial) 4 mg IVPUSH Q8H PRN PRN Reason: Nausea and Vomiting Pharmacy Consult (Consult Rx Perform Med Rec) 1 each MISCELLANE ONCE PRN PRN Reason: Consult order Sodium Chloride (0.9 % Sodium Chloride Flush 3 Ml Syringe) 3 ml IVFLUSH QSHIFT [facility] Last Admin: 12/26/21 07:45 Dose: 3 ml Home Medications Medication Instructions Recorded Confirmed Last Taken Type amlodipine 5 mg tablet 1 tab PO DAILY 12/25/21 12/25/21 12/25/21 History donepezil 10 mg tablet 1 tab PO BEDTIME 12/25/21 12/25/21 12/24/21 History losartan 100 mg tablet 1 tab PO DAILY 12/25/21 12/25/21 12/25/21 History melatonin 3 mg tablet 1 tab PO BEDTIME PRN insomnia 12/25/21 12/25/21 Unknown History mirtazapine 15 mg tablet 1 tab PO BEDTIME 12/25/21 12/25/21 12/24/21 History Physical Exam Vital Signs: Vital Signs: Last Vital Signs Temp 98.3 F 12/26/21 11:42 Pulse 80 12/26/21 11:42 Resp 20 12/26/21 11:42 BP 154/86 H 12/26/21 11:42 Pulse Ox 97 12/26/21 11:42 O2 Del Method 12/26/21 11:42 BMI result Body Mass Index 29.0 Neuro: Other: Left facial droop and dense flaccid left hemiplegia at 0/5 with extensor plantar response. Mild dysarthria. 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 Recommendaation swallowing evaluation PTOT. Continue aspirin. Blood pressure control. Continue statins. (2) Facial droop: Status: Acute (3) Left-sided weakness: Status: Acute (4) Other speech & language deficit: Status: Acute (5) Insomnia: Status: Acute (6) Hypertension: Status: Acute Plan This is a 76-year-old male with pertinent history of essential hypertension, insomnia who presents to the emergency department for evaluation of left-sided weakness, facial droop and speech deficit. #. Acute CVA -Will admit patient with cardiac monitor technician. Obtaining MRI of the brain to further delineate anatomy. Neurology consulted from the ER, appreciate assistance. Initiating dual antiplatelet therapy and high-intensity statin. Obtaining A1c, lipid panel and echocardiogram to complete workup. Physical therapy to evaluate and treat. NPO until patient passes speech swallow. #. Elevated creatinine - Unclear baseline. COOPER versus CKD. Patient received IV crystalloids in the ER. Monitor urine output and creatinine with fluid resuscitation #. Elevated troponin -likely type2 due to increased demand. No chest pain and no concern for ACS at the time of admission. #. 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 #. HTN -hold p.o. antihypertensives to allow for permissive hypertension. #. Insomnia -continue home meds once no longer npo #. Dementia, unspeified -on donepezil DVT prophylaxis: Lovenox 40mg daily Npo until pt passes swallow screen Full code Admit as inpatient and will require two night minimum hospital stay for stroke workup. Physical therapy eval pending for safe disposition. Procedures Date of Service Date of Service: 12/26/21
--- NOTE | 2021-12-26 15:55 | MHC.SL.SWA ---
Addendum entered and electronically signed by Halle Squires MA, CCC-ACUPUNCTURE PHYSICIAN 12/26/21 16:27: D.S. Original Note: Risk of Aspiration Due to: CVA Dysphasia Diet Status: Upgrade from NPO Liquid Consistency and Strategies for Safe Swallow: Liquid Intake Recommendation: Thin Liquid Intake Strategies: Small Sips No Straws Solid Food Consistency: Dietary Recommendations: Chopped/Advanced (NDD3) Additional Modifications to Solid Foods: Oral Medication Intake: Crushed with Puree Please contact the pharmacy regarding appropriate crushable or liquid drug formulations that are available whenever modified delivery is recommended. Compensatory Strategies and Precautions to be Taken for Safe Swallow: Sitting Upright (90 deg) Liquids from Cup Small Bites and Sips Alternate Liquids/Solids Avoid Specific Foods Supervision While Eating and Drinking for Safe Swallow: Total Assistance (1:1) Recommendation for Speech: Further Testing Needed Outpatient Speech Therapy Inpatient Speech Therapy Comment: Recommend CHOPPED/ADVANCED solids (NDD3), THIN liquids. Pills crushed or whole in puree. Recommend full assistance during meals at this time to assist w/ set up of tray and feeding if needed d/t L sided paresis. Aspiration precautions apply. Monitor for s/s of aspiration. Recommend oral care d/t risk of silent aspiration following CVA. MD, RN, and RD updated w/ recommendation via [employer]. ACUPUNCTURE PHYSICIAN will continue to follow. Dental Practice Manager Clinican/Clinical Fellow: Yes: Laura Jones M.A., CF-ACUPUNCTURE PHYSICIAN Supervisory Statement: I have reviewed and agree with the student/clinical fellow's documentation: Speech Language Pathologist:
--- NOTE | 2021-12-26 15:56 | P.PNIM_ITS ---
Subjective Subjective Date of Service: 12/26/21 Interval History: the patient was seen and evaluated this morning Laying in bed, reporting left-sided facial droop and weakness of upper and lower extremity Speech is normal, no issues with swallowing Denies any fever, chills or shortness of breath No reported other overnight events. Systemic review: No fever, chills but has left-sided weakness and facial drop No chest pain, palpitation No shortness of breath or coughing No abdominal pain, nausea or vomiting No urinary symptoms No reported rash Physical Exam Vital Signs: Vital Signs: Last Vital Signs Temp 98.3 F 12/26/21 11:42 Pulse 80 12/26/21 11:42 Resp 20 12/26/21 11:42 BP 154/86 H 12/26/21 11:42 Pulse Ox 97 12/26/21 11:42 O2 Del Method 12/26/21 11:42 BMI result Body Mass Index 29.0 Const: Other: Constitutional : Awake, interactive, not in distress Neck : Normal inspection, Supple Cardiovascular : RRR, no JVP, no lower extremity edema Respiratory : good bilateral air entry, no crackles, wheezes or rhonchi Gastrointestinal: soft, lax, Normal bowel sounds, Non tender Skin : Warm, Dry Neurological : Alert & oriented x3,Left facial droop and dense flaccid left hemiplegia at 0/5 with extensor plantar response.? Mild dysarthria Objective Data Active Medications Acetaminophen (Acetaminophen 325 Mg Tablet) 650 mg PO Q6H PRN PRN Reason: Pain, Mild (Pain Scale 1-3) Aspirin (Aspirin 81 Mg Tab.Chew) 81 mg PO DAILY [facility] OF [facility] Last Admin: 12/26/21 07:43 Dose: 81 mg Documented By: DORIAN Atorvastatin Calcium (Atorvastatin Calcium 40 Mg Tablet) 40 mg PO BEDTIME ON LICENSE OF [facility] Last Admin: 12/26/21 00:29 Dose: 40 mg Documented By: GUS Clopidogrel Bisulfate (Clopidogrel Bisulfate 75 Mg Tablet) 75 mg PO DAILY [facility] OF [facility] Last Admin: 12/26/21 07:43 Dose: 75 mg Documented By: DORIAN Donepezil HCl (Donepezil Hcl 10 Mg Tablet) 10 mg PO BEDTIME ON LICENSE OF [facility] Enoxaparin Sodium (Enoxaparin Sodium 40 Mg/0.4 Ml Syringe) 40 mg SUBCUT BEDTIME ON [facility] OF [facility] Last Admin: 12/26/21 00:29 Dose: 40 mg Documented By: GUS Melatonin (Melatonin 3 Mg Tablet) 6 mg PO BEDTIME PRN PRN Reason: Insomnia Melatonin (Melatonin 3 Mg Tablet) 3 mg PO BEDTIME PRN PRN Reason: insomnia Mirtazapine (Mirtazapine 15 Mg Tablet) 15 mg PO BEDTIME [facility] Ondansetron HCl (Ondansetron Hcl 4 Mg/2 Ml Vial) 4 mg IVPUSH Q8H PRN PRN Reason: Nausea and Vomiting Pharmacy Consult (Consult Rx Perform Med Rec) 1 each MISCELLANE ONCE PRN PRN Reason: Consult order Sodium Chloride (0.9 % Sodium Chloride Flush 3 Ml Syringe) 3 ml IVFLUSH QSHIFT [facility] Last Admin: 12/26/21 07:45 Dose: 3 ml Documented By: DORIAN Labs CBC & Chem 7: 12/26/21 06:34 12/26/21 06:34 Labs: Laboratory Results - last 24 hr 12/25/21 12/25/21 12/25/21 19:07 19:07 19:40 MCV 86.4 MCH 29.8 MCHC 34.5 RDW 12.8 Plt Count 263 MPV 9.1 L Immature Gran % (Auto) 0.1 Neut % (Auto) 62.9 Lymph % (Auto) 21.8 [place] % (Auto) 11.0 Eos % (Auto) 3.3 Baso % (Auto) 0.9 Lymph # (Auto) 1.7 [place] # (Auto) 0.9 Eos # (Auto) 0.3 Baso # (Auto) 0.1 Abs Immat Gran (auto) 0.01 Absolute Neuts (auto) 5.0 Absolute Nucleated RBC 0.000 Nucleated RBC % (auto) 0.0 PT Whole Blood PT 13.1 INR Whole Blood INR 1.1 Anion Gap Estim Creat Clear Calc Estimated GFR POC Glucose 103 Random Glucose Estimat Average Glucose Hemoglobin A1c % Calcium Troponin I High Sens B-Natriuretic Peptide Triglycerides Cholesterol LDL Cholesterol, Calc HDL Cholesterol Hold Red Top COVID-19 ([facility]) COVID-19 Clin Com 12/25/21 12/25/21 12/25/21 19:40 19:40 19:40 MCV MCH MCHC RDW Plt Count MPV Immature Gran % (Auto) Neut % (Auto) Lymph % (Auto) [place] % (Auto) Eos % (Auto) Baso % (Auto) Lymph # (Auto) [place] # (Auto) Eos # (Auto) Baso # (Auto) Abs Immat Gran (auto) Absolute Neuts (auto) Absolute Nucleated RBC Nucleated RBC % (auto) PT 11.9 Whole Blood PT INR 1.0 Whole Blood INR Anion Gap 14 Estim Creat Clear Calc 34.7 Estimated GFR 38 POC Glucose Random Glucose 101 Estimat Average Glucose Hemoglobin A1c % Calcium 8.7 Troponin I High Sens 48.8 H B-Natriuretic Peptide Triglycerides Cholesterol LDL Cholesterol, Calc HDL Cholesterol Hold Red Top COVID-19 (JONO) COVID-19 Clin Com 12/25/21 12/25/21 12/25/21 19:40 19:40 21:50 MCV MCH MCHC RDW Plt Count MPV Immature Gran % (Auto) Neut % (Auto) Lymph % (Auto) [place] % (Auto) Eos % (Auto) Baso % (Auto) Lymph # (Auto) [place] # (Auto) Eos # (Auto) Baso # (Auto) Abs Immat Gran (auto) Absolute Neuts (auto) Absolute Nucleated RBC Nucleated RBC % (auto) PT Whole Blood PT INR Whole Blood INR Anion Gap Estim Creat Clear Calc Estimated GFR POC Glucose Random Glucose Estimat Average Glucose Hemoglobin A1c % Calcium Troponin I High Sens B-Natriuretic Peptide 21 Triglycerides Cholesterol LDL Cholesterol, Calc HDL Cholesterol Hold Red Top See Note COVID-19 (JONO) Negative COVID-19 Clin Com See Note 12/26/21 12/26/21 12/26/21 06:34 06:34 06:34 MCV 87.1 MCH 29.8 MCHC 34.2 RDW 12.9 Plt Count 266 MPV 9.7 Immature Gran % (Auto) 0.1 Neut % (Auto) 51.9 Lymph % (Auto) 31.7 [place] % (Auto) 11.3 H Eos % (Auto) 3.9 Baso % (Auto) 1.1 Lymph # (Auto) 2.5 [place] # (Auto) 0.9 Eos # (Auto) 0.3 Baso # (Auto) 0.1 Abs Immat Gran (auto) 0.01 Absolute Neuts (auto) 4.1 Absolute Nucleated RBC 0.000 Nucleated RBC % (auto) 0.0 PT Whole Blood PT INR Whole Blood INR Anion Gap 15 Estim Creat Clear Calc 43.5 Estimated GFR 50 POC Glucose Random Glucose 99 Estimat Average Glucose 128 Hemoglobin A1c % 6.1 Calcium 8.8 Troponin I High Sens B-Natriuretic Peptide Triglycerides 92 Cholesterol 216 LDL Cholesterol, Calc 148 HDL Cholesterol 50 Hold Red Top COVID-19 ([facility]ON[facility]) COVID-19 Clin Com Assessment and Plan (1) Left-sided weakness: Status: Acute (2) Lacunar infarction: Status: Acute (3) Acute left-sided muscle weakness: Status: Acute (4) Facial droop: Status: Acute Plan This is a 76-year-old male with pertinent history of essential hypertension, insomnia who presents to the emergency department for evaluation of left-sided weakness, facial droop and speech deficit. # Acute right internal capsule stroke with left hemiplegia and facial droop MRI showed evidence of right internal capsule stroke Neurology input appreciated, aspirin, statin and blood pressure control Speech therapy evaluation PT, OT Pending echo Keep on telemetry # Elevated creatinine Unclear baseline Seems to be improving with IV fluid Monitor urine output and follow BMP #. Elevated troponin Likely type 2 due to increased demand No chest pain or EKG changes to suggest ACS #. 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 #. HTN hold p.o. antihypertensives to allow for permissive hypertension. #. Insomnia continue home med #. Dementia, unspeified on donepezil DVT prophylaxis Lovenox 40mg daily The patient will need overnight hospital stay to continue evaluation for acute stroke pending echo, safe placement and discharge plan. Quality Stroke Does the patient have a stroke diagnosis?: Yes Reason for No Anti-thrombotic by Day Two: N/A - Med Ordered VTE Prior VTE?: No VTE Risk Level:: Medical - moderate - high VTE Device Contraindication: Treatment Not Indicated VTE Drug Contraindication: N/A - Med Ordered
[2021-12-26 15:58] VITALS: BP 157/69; PULSE 72; RESP 18; TEMP 37.2; O2SAT 95
[2021-12-26 19:15] VITALS: BP 151/76; PULSE 77; RESP 18; TEMP 37.2; O2SAT 95
--- NOTE | 2021-12-27 | ECG_ITS ---
Test Reason : weakness Blood Pressure : / mmHG Vent. Rate : 077 BPM Atrial Rate : 077 BPM P-R Int : 150 ms QRS Dur : 098 ms QT Int : 378 ms P-R-T Axes : 070 -05 056 degrees QTc Int : 427 ms Normal sinus rhythm with sinus arrhythmia Low voltage QRS Otherwise normal ECG When compared with ECG of 25-DEC-2021 19:35, No significant change was found Heart rate has decreased Referred By: Huseyin Merino Electronically Signed By:KATHRYN GAYLE MD
[2021-12-27 03:57] VITALS: BP 182/90; PULSE 84; RESP 20; TEMP 37.2; O2SAT 96
[2021-12-27 07:53] VITALS: BP 170/92; PULSE 80; RESP 20; TEMP 37.3; O2SAT 96
[2021-12-27 08:06] LABS: Hematocrit 39.6 % (42.0-52.0); Hemoglobin 13.6 g/dl (14.0-18.0); Mean Corpuscular HGB Conc 34.3 g/dl (31.0-36.0); Mean Corpuscular Volume 87.4 fL (80.0-98.0); Platelet Count 275 X10*3/uL (160-400); Red Blood Count 4.53 X10*6/uL (4.60-5.80); Red Cell Distribution Width 12.7 % (11.0-16.0); White Blood Count 10.1 X10*3/uL (4.8-10.8)
[2021-12-27 08:18] LABS: Anion Gap 15 (12-20); Blood Urea Nitrogen 18 mg/dL (9-16); Calcium 9.1 mg/dL (8.4-10.2); Carbon Dioxide 24 mmol/L (22-29); Chloride 107 mmol/L (96-108); Creatinine Clr Calc Pharmacy 37.2; Estimated Glomerular Filt Rate 42; Glucose Random 114 mg/dL (60-115); Sodium 142 mmol/L (135-145)
[2021-12-27] MEDS: Clopidogrel Bisulfate 75 MG TABLET PO (10:23)
[2021-12-27] MEDS: 0.9 % Sodium Chloride Flush 3 ML SYRINGE IVFLUSH ×3 (10:23→23:00)
[2021-12-27] MEDS: amLODIPine Besylate 5 MG TABLET PO (10:23)
[2021-12-27] MEDS: Aspirin 81 MG TAB.CHEW PO (10:23)
[2021-12-27 11:25] VITALS: BP 157/75; PULSE 74; RESP 20; TEMP 36.8; O2SAT 94
--- NOTE | 2021-12-27 12:23 | HO.PM.IMPN ---
Subjective Subjective Date of Service: 12/27/21 Interval History: the patient was seen and evaluated this morning Laying in bed, reporting left-sided facial droop and weakness of upper and lower extremity with no improvement Speech is normal, tolerating diet with no reported complaints No reported other overnight events. Systemic review: No fever, chills but has left-sided weakness and facial drop No chest pain, palpitation No shortness of breath or coughing No abdominal pain, nausea or vomiting No urinary symptoms No reported rash Physical Exam Vital Signs: Vital Signs: Last Vital Signs Temp 98.3 F 12/27/21 11:25 Pulse 74 12/27/21 11:25 Resp 20 12/27/21 11:25 BP 157/75 H 12/27/21 11:25 Pulse Ox 94 12/27/21 11:25 O2 Del Method 12/27/21 11:25 BMI result Body Mass Index 29.0 Const: Other: Constitutional : Awake, interactive, not in distress Neck : Normal inspection, Supple Cardiovascular : RRR, no JVP, no lower extremity edema Respiratory : good bilateral air entry, no crackles, wheezes or rhonchi Gastrointestinal: soft, lax, Normal bowel sounds, Non tender Skin : Warm, Dry Neurological : Alert & oriented x3,Left facial droop and dense flaccid left hemiplegia at 0/5 with extensor plantar response.? Mild dysarthria Objective Data Active Medications Acetaminophen (Acetaminophen 325 Mg Tablet) 650 mg PO Q6H PRN PRN Reason: Pain, Mild (Pain Scale 1-3) Amlodipine Besylate (Amlodipine Besylate 5 Mg Tablet) 5 mg PO DAILY [facility]; Protocol Last Admin: 12/27/21 10:23 Dose: 5 mg Documented By: HILLARY Aspirin (Aspirin 81 Mg Tab.Chew) 81 mg PO DAILY [facility] Last Admin: 12/27/21 10:23 Dose: 81 mg Documented By: HILLARY Atorvastatin Calcium (Atorvastatin Calcium 40 Mg Tablet) 40 mg PO BEDTIME [facility] Last Admin: 12/26/21 21:49 Dose: 40 mg Documented By: APOLLO Clopidogrel Bisulfate (Clopidogrel Bisulfate 75 Mg Tablet) 75 mg PO DAILY [facility] Last Admin: 12/27/21 10:23 Dose: 75 mg Documented By: HILLARY Donepezil HCl (Donepezil Hcl 10 Mg Tablet) 10 mg PO BEDTIME [facility] Last Admin: 12/26/21 21:46 Dose: Not Given Documented By: APOLLO Non-Admin Reason: pts family gave pt home med Enoxaparin Sodium (Enoxaparin Sodium 40 Mg/0.4 Ml Syringe) 40 mg SUBCUT BEDTIME [facility] Last Admin: 12/26/21 21:49 Dose: 40 mg Documented By: APOLLO Melatonin (Melatonin 3 Mg Tablet) 6 mg PO BEDTIME PRN PRN Reason: Insomnia Melatonin (Melatonin 3 Mg Tablet) 3 mg PO BEDTIME PRN PRN Reason: insomnia Mirtazapine (Mirtazapine 15 Mg Tablet) 15 mg PO BEDTIME [facility] Last Admin: 12/26/21 21:47 Dose: Not Given Documented By: APOLLO Non-Admin Reason: pts family gave him his home meds Ondansetron HCl (Ondansetron Hcl 4 Mg/2 Ml Vial) 4 mg IVPUSH Q8H PRN PRN Reason: Nausea and Vomiting Pharmacy Consult (Consult Rx Perform Med Rec) 1 each MISCELLANE ONCE PRN PRN Reason: Consult order Sodium Chloride (0.9 % Sodium Chloride Flush 3 Ml Syringe) 3 ml IVFLUSH QSHIFT [facility] Last Admin: 12/27/21 10:23 Dose: 3 ml Documented By: HILLARY Labs CBC & Chem 7: 12/27/21 07:01 12/27/21 07:01 Labs: Laboratory Results - last 24 hr 12/27/21 12/27/21 07:01 07:01 MCV 87.4 MCH 30.0 MCHC 34.3 RDW 12.7 Plt Count 275 MPV 10.0 Absolute Nucleated RBC 0.000 Nucleated RBC % (auto) 0.0 Anion Gap 15 Estim Creat Clear Calc 37.2 Estimated GFR 42 Random Glucose 114 Calcium 9.1 Assessment and Plan (1) Other speech & language deficit: Status: Acute (2) Left-sided weakness: Status: Acute (3) Stroke: Status: Acute Plan This is a 76-year-old male with pertinent history of essential hypertension, insomnia who presents to the emergency department for evaluation of left-sided weakness, facial droop and speech deficit. # Acute right internal capsule stroke with left hemiplegia and facial droop MRI showed evidence of right internal capsule stroke Neurology input appreciated, aspirin, statin and blood pressure control Speech therapy evaluation PT, OT Echo showed normal EF with impaired relaxation filling pattern Keep on telemetry # Elevated creatinine Unclear baseline Seems to be improving with IV fluid Monitor urine output and follow BMP #. Elevated troponin Likely type 2 due to increased demand No chest pain or EKG changes to suggest ACS #. 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 #. HTN hold p.o. antihypertensives to allow for permissive hypertension. #. Insomnia continue home med #. Dementia, unspeified on donepezil DVT prophylaxis Lovenox 40mg daily The patient will need overnight hospital stay pending safe placement and discharge plan. Quality Stroke Does the patient have a stroke diagnosis?: Yes Reason for No Anti-thrombotic by Day Two: N/A - Med Ordered VTE Prior VTE?: No VTE Risk Level:: Medical - moderate - high VTE Device Contraindication: Treatment Not Indicated VTE Drug Contraindication: N/A - Med Ordered
[2021-12-27 15:30] VITALS: BP 156/84; PULSE 76; RESP 16; TEMP 36; O2SAT 95
[2021-12-27 18:53] VITALS: BP 172/92; PULSE 95; RESP 18; TEMP 36.8; O2SAT 96
[2021-12-27] MEDS: Mirtazapine 15 MG TABLET PO (22:59)
[2021-12-27] MEDS: Atorvastatin Calcium 40 MG TABLET PO (22:59)
[2021-12-27] MEDS: Donepezil HCl 10 MG TABLET PO (22:59)
[2021-12-27] MEDS: Enoxaparin Sodium 40 MG/0.4 ML SYRINGE SUBCUT (23:00)
[2021-12-27 23:05] VITALS: BP 177/84; PULSE 69; RESP 18; TEMP 37.1; O2SAT 95
[2021-12-28] VITALS (8 sets, daily range): BP systolic 135–183; BP diastolic 82–102; PULSE 63–83; RESP 17–20; TEMP 36.4–36.9; O2SAT 94–96
[2021-12-28] MEDS: Aspirin 81 MG TAB.CHEW PO (08:02)
[2021-12-28] MEDS: Clopidogrel Bisulfate 75 MG TABLET PO (08:02)
[2021-12-28] MEDS: Acetaminophen 325 MG TABLET 650 MG PO (08:02)
[2021-12-28] MEDS: amLODIPine Besylate 5 MG TABLET PO (08:02)
[2021-12-28] MEDS: 0.9 % Sodium Chloride Flush 3 ML SYRINGE IVFLUSH ×3 (08:03→23:12)
[2021-12-28] MEDS: Losartan Potassium 50 MG TABLET 100 MG PO (10:02)
--- NOTE | 2021-12-28 11:15 | P.PNIM_ITS ---
Subjective Subjective Date of Service: 12/28/21 Interval History: the patient was seen and evaluated this morning Laying in bed, report toleratind diet well left-sided facial droop and weakness of upper and lower extremity with no improvement Speech is normal No reported other overnight events. Systemic review: No fever, chills but has left-sided weakness and facial drop No chest pain, palpitation No shortness of breath or coughing No abdominal pain, nausea or vomiting No urinary symptoms No reported rash Physical Exam Vital Signs: Vital Signs: Last Vital Signs Temp 97.8 F 12/28/21 10:13 Pulse 67 12/28/21 10:13 Resp 18 12/28/21 10:13 BP 156/91 H 12/28/21 10:13 Pulse Ox 95 12/28/21 10:13 O2 Del Method 12/28/21 10:13 BMI result Body Mass Index 29.0 Const: Other: Constitutional : Awake, interactive, not in distress Neck : Normal inspection, Supple Cardiovascular : RRR, no JVP, no lower extremity edema Respiratory : good bilateral air entry, no crackles, wheezes or rhonchi Gastrointestinal: soft, lax, Normal bowel sounds, Non tender Skin : Warm, Dry Neurological : Alert & oriented x3,Left facial droop and dense flaccid left hemiplegia at 0/5 with extensor plantar response.? Mild dysarthria Objective Data Active Medications Acetaminophen (Acetaminophen 325 Mg Tablet) 650 mg PO Q6H PRN PRN Reason: Pain, Mild (Pain Scale 1-3) Last Admin: 12/28/21 08:02 Dose: 650 mg Documented By: HILLARY Amlodipine Besylate (Amlodipine Besylate 5 Mg Tablet) 5 mg PO DAILY [facility]; Protocol Last Admin: 12/28/21 08:02 Dose: 5 mg Documented By: HILLARY Aspirin (Aspirin 81 Mg Tab.Chew) 81 mg PO DAILY [facility] Last Admin: 12/28/21 08:02 Dose: 81 mg Documented By: HILLARY Atorvastatin Calcium (Atorvastatin Calcium 40 Mg Tablet) 40 mg PO BEDTIME [facility] Last Admin: 12/27/21 22:59 Dose: 40 mg Documented By: ALICIA Clopidogrel Bisulfate (Clopidogrel Bisulfate 75 Mg Tablet) 75 mg PO DAILY [facility] Last Admin: 12/28/21 08:02 Dose: 75 mg Documented By: HILLARY Donepezil HCl (Donepezil Hcl 10 Mg Tablet) 10 mg PO BEDTIME [facility] Last Admin: 12/27/21 22:59 Dose: 10 mg Documented By: ALICIA Enoxaparin Sodium (Enoxaparin Sodium 40 Mg/0.4 Ml Syringe) 40 mg SUBCUT BEDTIME [facility] Last Admin: 12/27/21 23:00 Dose: 40 mg Documented By: ALICIA Losartan Potassium (Losartan Potassium 50 Mg Tablet) 100 mg PO DAILY [facility]; Protocol Last Admin: 12/28/21 10:02 Dose: 100 mg Documented By: HILLARY Melatonin (Melatonin 3 Mg Tablet) 6 mg PO BEDTIME PRN PRN Reason: Insomnia Melatonin (Melatonin 3 Mg Tablet) 3 mg PO BEDTIME PRN PRN Reason: insomnia Mirtazapine (Mirtazapine 15 Mg Tablet) 15 mg PO BEDTIME [facility] Last Admin: 12/27/21 22:59 Dose: 15 mg Documented By: ALICIA Ondansetron HCl (Ondansetron Hcl 4 Mg/2 Ml Vial) 4 mg IVPUSH Q8H PRN PRN Reason: Nausea and Vomiting Pharmacy Consult (Consult Rx Perform Med Rec) 1 each MISCELLANE ONCE PRN PRN Reason: Consult order Sodium Chloride (0.9 % Sodium Chloride Flush 3 Ml Syringe) 3 ml IVFLUSH QSHIFT [facility] Last Admin: 12/28/21 08:03 Dose: 3 ml Documented By: HILLARY Labs CBC & Chem 7: 12/27/21 07:01 12/27/21 07:01 Assessment and Plan (1) Other speech & language deficit: Status: Acute (2) Stroke: Status: Acute (3) Left-sided weakness: Status: Acute Plan This is a 76-year-old male with pertinent history of essential hypertension, insomnia who presents to the emergency department for evaluation of left-sided weakness, facial droop and speech deficit. 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 Elevated troponin Likely type 2 due to increased demand No chest pain or EKG changes to suggest ACS #. 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 #. HTN restarted both Amlodipin and losartan #. Insomnia continue home med #. Dementia, unspeified on donepezil DVT prophylaxis Lovenox 40mg daily The patient will need overnight hospital stay pending safe placement and discharge plan. Quality Stroke Does the patient have a stroke diagnosis?: Yes Reason for No Anti-thrombotic by Day Two: N/A - Med Ordered VTE Prior VTE?: No VTE Risk Level:: Medical - moderate - high VTE Device Contraindication: Treatment Not Indicated VTE Drug Contraindication: N/A - Med Ordered
[2021-12-28] MEDS: Enoxaparin Sodium 40 MG/0.4 ML SYRINGE SUBCUT (20:55)
[2021-12-28] MEDS: Mirtazapine 15 MG TABLET PO (20:57)
[2021-12-28] MEDS: Atorvastatin Calcium 40 MG TABLET PO (20:57)
[2021-12-28] MEDS: Melatonin 3 MG TABLET PO (20:57)
[2021-12-28] MEDS: Donepezil HCl 10 MG TABLET PO (20:57)
[2021-12-29] VITALS (7 sets, daily range): BP systolic 148–174; BP diastolic 74–103; PULSE 75–86; RESP 16–20; TEMP 36.3–37; O2SAT 94–98
[2021-12-29] MEDS: Aspirin 81 MG TAB.CHEW PO (09:05)
[2021-12-29] MEDS: Losartan Potassium 50 MG TABLET 100 MG PO (09:05)
[2021-12-29] MEDS: Clopidogrel Bisulfate 75 MG TABLET PO (09:06)
[2021-12-29] MEDS: amLODIPine Besylate 10 MG TABLET PO (09:06)
[2021-12-29] MEDS: 0.9 % Sodium Chloride Flush 3 ML SYRINGE IVFLUSH (09:06)
--- NOTE | 2021-12-29 12:05 | P.DS_ITS ---
DS: Providers Provider Date of Service: 12/29/21 Date of admission: 12/25/21 22:56 Primary care physician: Karri Merrill III, MD Consults: 12/25/21 22:04 Consult to Neurology Stat Consulting Provider: [facility] Reason for consultation: ? stroke. 12/26/21 08:04 Consult to Neurology Routine Consulting Provider: [facility] Reason for consultation: left-sided weakness, facial droop and speech deficit. DS: Diagnosis Discharge Diagnosis (1) Stroke: Status: Acute (2) Left-sided weakness: Status: Acute (3) Acute left-sided muscle weakness: Status: Acute (4) Facial droop: Status: Acute (5) Hypertension: Status: Acute DS: Summary Hospital Course Hospital Course: Admission note HPI This is a 76-year-old male with pertinent history of essential hypertension, insomnia who presents to the emergency department for evaluation of left-sided weakness, facial droop and speech deficit.? Initially patient stated that he 1st noticed his deficits at 17:30.? He was considered for tPA but later stated that his symptoms started earlier this morning.? Neurology was contacted and he was deemed to be not a candidate for tPA.? Upon my evaluation, patient states around 06:00 he noticed facial droop, change in his speech.? He also had a fall due to weakness in lower extremities.? Patient states he has noticed that his left upper and lower extremity have been weak since morning.? No dizziness, lightheadedness or loss of consciousness prior to the fall.? No similar symptoms in the past.? Patient denies fever, chills, jerking movement of extremities, tongue bite, urinary bowel incontinence, chest discomfort, palpitations, shortness of breath, abdominal pain, changes in urinary or bowel habits Hospital course The patient presented to the hospital with new onset left-sided weakness, facial droop . 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 Echo showed normal EF with impaired relaxation filling pattern. started on Aspirin and Statin. MRI showed evidence of right internal capsule stroke. Neurology input appreciated, aspirin, statin and blood pressure control. evaluated by Speech therapy evaluation who recommend ed regular diet. seen by PT, OT who recommended acute rehab placement. Noted to have elevated Creatinine believed to be from CKD stage 3. Blood pressure was noted to be elevated. kept for first 24 hours then started home meds. remained on the higher end so Amlodipine was increased to 10 mg daily. to be followed as outpatient. 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 discussed with neurology who reported nothing to be done about small aneurysm. Increase Amlodipine 10 Baby aspirin daily Atorvastatin daily start acute rehab monitor BP and check with PCP for further adjustment of home meds Time Spent with Patient Time attestation: Total time spent providing and/or coordinating discharge services: Discharge coordination time: Greater than 30 minutes Quality: Safe Use of Opioids Does Pt have an Active Cancer Diagnosis on the Problem List?: No Quality: Stroke Does the patient have a stroke diagnosis?: Yes Reason for No Anti-thrombotic at DC: N/A - Med Ordered Reason for No Anticoagulant at DC: Not indicated Reason Not Initiating IV-Tpa: Not indicated Reason for No Anti-thrombotic by Day Two: N/A - Med Ordered Reason for No Statin at DC: N/A - Med Ordered Physical Exam Vital Signs: Vital Signs: Last Vital Signs Temp 98.0 F 12/29/21 11:03 Pulse 78 12/29/21 11:03 Resp 17 12/29/21 11:03 BP 148/77 H 12/29/21 11:03 Pulse Ox 98 12/29/21 11:03 O2 Del Method 12/29/21 11:03 BMI result Body Mass Index 29.0 Const: Other: Constitutional : Awake, interactive, not in distress Neck : Normal inspection, Supple Cardiovascular : RRR, no JVP, no lower extremity edema Respiratory : good bilateral air entry, no crackles, wheezes or rhonchi Gastrointestinal: soft, lax, Normal bowel sounds, Non tender Skin : Warm, Dry Neurological : Alert & oriented x3,Left facial droop and dense flaccid left hemiplegia at 0/5 with extensor plantar response.? Mild dysarthria DS: Data Imaging MRI - head: Radiologist's impression: ITS Impressions Head CT 12/25/21 19:11 IMPRESSION: 1. Age indeterminate lacunar infarctions in the right basal ganglia. Recommend correlation with an MR of the brain. 2. Chronic microangiopathy and generalized cerebral volume loss. This critical result was discussed with Shanika Guillen NP at 12/25/2021 7:25 PM and it was ascertained that the content and urgency of the report was understood at the time of direct communication. Head/Neck CTA 12/25/21 19:19 IMPRESSION: CTA head and neck: 1. There are no acute bleeds or territorial infarcts. 2. There is diffuse volume loss and there are chronic microvascular ischemic changes. 3. There are no intracranial masses or areas of abnormal enhancement. 4. There is no cervical lymphadenopathy. There are spondylitic and facet arthropathic changes in the cervical spine. CTA head and neck: 1. There are atherosclerotic calcifications throughout the upper chest and cervical arterial structures without significant stenosis. 2. Intracranially there is irregular caliber of the right middle cerebral artery M1 segment, the bilateral vertebral arteries, the basilar artery and the right posterior cerebral artery. There are no focal stenoses or vascular malformations. 3. 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 4. 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 This critical result was discussed with Shanika Guillen by telephone on 12/25/2021 at 8:34 PM and it was ascertained that the content and urgency of the report was understood at the time of direct communication. Chest X-Ray 12/25/21 19:28 IMPRESSION: Mild bibasilar subsegmental atelectasis. No focal airspace opacity. No pleural effusion or pneumothorax. Brain MRI 12/26/21 13:46 IMPRESSION: 1. Acute infarct involving the right gibson radiata, posterior lentiform nucleus, and posterior limb of the internal capsule. 2. Mild chronic microangiopathy and chronic lacunar infarcts involving the right centrum semiovale and right basal ganglia. - Discharge Plan Discharge Anticipated Discharge Date/Time: 12/29/21 11:50 Patient Disposition: er SNF Discharge Diagnosis: acute ischemic stroke Referrals: Karri Merrill III, MD [Primary Care Provider] - 1 Week Discharge Medications: New atorvastatin 40 mg Tablet 40 mg PO BEDTIME Qty: 30 0RF amlodipine 10 mg Tablet 10 mg PO DAILY Qty: 30 0RF Protocol: Hold for SBP< HOLD for SBP < : 90 aspirin 81 mg Tablet,Chewable 81 mg PO DAILY Qty: 30 0RF Continued donepezil 10 mg tablet 1 tab PO BEDTIME melatonin 3 mg tablet 1 tab PO BEDTIME PRN (Reason: insomnia) mirtazapine 15 mg tablet 1 tab PO BEDTIME losartan 100 mg tablet 1 tab PO DAILY Discontinued amlodipine 5 mg tablet 1 tab PO DAILY Discharge Orders: Discharge Order (Routine); Ordered 12/29/21 Ordered By: Huseyin Merino Diet: Low salt diet Activity on Discharge: As tolerated Stand Alone Forms: Patient Portal Discharge page Care Plan Goals: Read below Health Concerns: Read below Plan of Treatment: Read below Assessment: You were evaluated in the hospital for sudden onset left sided weakness and facial droop. found to have acute stroke by CT&MRI images. evaluated by neurologist who recommended baby aspirin and cholestrol medication. seen by physical therapy team who recommended acute rehabilitation. Increase Amlodipine 10 Baby aspirin daily Atorvastatin daily start acute rehab monitor BP and check with PCP for further adjustment of home meds
--- NOTE | 2021-12-29 13:29 | MHC.CM.PN ---
Patient is medically cleared for dc pending [employer] auth for dc to [facility]. [facility] has informed MD that auth is still not secured. [facility] will follow.
[2021-12-29 14:07] LABS: COVID-19 Test Negative (Negative); IDNOW Serial# 16C4AD1C
--- NOTE | 2021-12-29 15:28 | MHC.SL.SWA ---
Speech Pathologist Impression: Oral phase dysphagia, dysarthria Risk of Aspiration Due to: Recent CVA Dysphasia Diet Status:No Change Liquid Consistency and Strategies for Safe Swallow: Liquid Intake Recommendation: Thin Liquid Intake Strategies: Small Sips No Straws Solid Food Consistency: Dietary Recommendations: Chopped/Advanced (NDD3)- Recommend full assistance during meals at this time to assist w/ set up of tray and feeding if needed d/t L sided paresis. Aspiration precautions apply. Additional Modifications to Solid Foods: Per CM, pt is medically cleared for discharge to [facility]. Recommend continue speech therapy in rehab for dysarthria and oral phase dysphagia. Oral Medication Intake: Crushed with Puree Please contact the pharmacy regarding appropriate crushable or liquid drug formulations that are available whenever modified delivery is recommended. Compensatory Strategies and Precautions to be Taken for Safe Swallow: Sitting Upright (90 deg) Liquids from Cup Small Bites and Sips Alternate Liquids/Solids Avoid Specific Foods Supervision While Eating and Drinking for Safe Swallow: Total Assistance (1:1) Recommendation for Speech: Speech Therapy in Rehab Retail Field Supervisor Clinican/Clinical Fellow: No Supervisory Statement: I have reviewed and agree with the student/clinical fellow's documentation: N/A Speech Language Pathologist: Halle Squires M.A., CCC-LADLE WATCHER
[2021-12-29] MEDS: Atorvastatin Calcium 40 MG TABLET PO (20:08)
[2021-12-29] MEDS: Enoxaparin Sodium 40 MG/0.4 ML SYRINGE SUBCUT (20:08)
[2021-12-29] MEDS: Donepezil HCl 10 MG TABLET PO (20:08)
[2021-12-29] MEDS: Mirtazapine 15 MG TABLET PO (20:08)
[2021-12-30 03:41] VITALS: BP 171/89; PULSE 74; RESP 18; TEMP 36.8; O2SAT 95
[2021-12-30 07:37] VITALS: BP 169/88; PULSE 78; RESP 18; TEMP 37.2; O2SAT 97
[2021-12-30 08:15] VITALS: BP 169/88; PULSE 78; O2SAT 97
[2021-12-30] MEDS: Aspirin 81 MG TAB.CHEW PO (08:46)
[2021-12-30] MEDS: amLODIPine Besylate 10 MG TABLET PO (08:46)
[2021-12-30] MEDS: Losartan Potassium 50 MG TABLET 100 MG PO (08:46)
--- NOTE | 2021-12-30 09:33 | MHC.CM.PN ---
[facility] has denied Acute Rehab LOC/@ [place]; has been provided phone # for [facility] @ [phone] and CM will follow.
[2021-12-30 11:10] VITALS: BP 157/89; PULSE 75; RESP 17; TEMP 36.4; O2SAT 99
--- NOTE | 2021-12-30 12:53 | MHC.CM.PN ---
Patient has been medically cleared for dc to Acute Inpatient Rehab today. Patient will dc to [facility] today at 3:30 PM, via [facility]. CM met with Patient at bedside and addressed IMM with him, providing him with the original and placing a copy on the chart. CM has also left a vm for Patient's Daughter/Gus @ [phone], informing her of the dc plan. Patient is aware of and in agreement with the dc plan.
[2021-12-30 17:54] VITALS: BP 163/85; PULSE 73; RESP 16; TEMP 36.6; O2SAT 94
== END 2021-12-30 18:02 | DRG 65 ==
LOC: HO.ED 22:10 → HO.EDOVER 23:01 → HO.IMC 23:32
PROVIDERS: Physician Assistant; Admitting Provider Student in an Organized Health Care Education/Training Program; Emergency Provider Emergency Medicine; PCP Internal Medicine; Visit Provider Student in an Organized Health Care Education/Training Program
DX: I63.81 Other cerebral infarction due to occlusion or stenosis of small artery (principal); G81.94 Hemiplegia, unspecified affecting left nondominant side; R29.810 Facial weakness; I12.9 Hypertensive chronic kidney disease with stage 1 through stage 4 chronic kidney disease, or unspecified chronic kidney disease; N18.30 Chronic kidney disease, stage 3 unspecified; G47.00 Insomnia, unspecified; E78.5 Hyperlipidemia, unspecified; F03.90 Unspecified dementia, unspecified severity, without behavioral disturbance, psychotic disturbance, mood disturbance, and anxiety; R29.705 NIHSS score 5; Z20.822 Contact with and (suspected) exposure to COVID-19; Z79.899 Other long term (current) drug therapy
CPT/HCPCS: 36415; 70450; 70496; 70498; 70551; 71045; 80048; 80061; 82947; 83036; 83880; 84484; 85025; 85027; 85610; 87635; 92526; 92610; 93005; 93306; 97110; 97163; 97167; 97530; 99285; J1650; Q9957; Q9967